=== PATIENT | female | born 1980 | race Caucasian/White ===

== ENCOUNTER 2017-03-27 05:33 | Day surgery (SDC) | payer OTHER ==
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
[2017-03-27] MEDS ORDERED: cefOXitin SODIUM 2 GM in D5W 100 ML IV ONE (06:23)
[2017-03-27] MEDS ORDERED: LR 1,000 ML IV ONE (06:30)
[2017-03-27 07:01] LABS: % IMMATURE GRANULYOCYTES 0.3 % (0.0-1.1); ABSOLUTE IMMATURE GRANULOCYTES 0.01 10^3/uL (0.00-0.10); ADD DIFF? NO; ADD MORPH? NO; ADD SCAN? NO; ATYPICAL LYMPHOCYTE FLAG 20 (0-99); FRAGMENT RBC FLAG 0 (0-99); HEMATOCRIT 31.5 % (38.0-47.0); HEMOGLOBIN 9.9 g/dL (12.6-16.3); LEFT SHIFT FLG 0 (0-99); LIPEMIA HEMOLYSIS FLAG 80 (0-99); MEAN CELL HEMOGLOBIN 25.1 pg (27.9-34.1); MEAN CELL HEMOGLOBIN CONCENTR. 31.4 g/dL (32.4-36.7); MEAN CELL VOLUME 79.7 fL (81.5-99.8); PLATELET CLUMPS FLAG 10 (0-99); PLATELET COUNT 234 10^3/uL (150-400); RED BLOOD CELL COUNT 3.95 10^6/uL (4.18-5.33); RED CELL DISTRIBUTION WIDTH 16.6 % (11.5-15.2)
[2017-03-27] MEDS ORDERED: BUPIVACAINE/EPI 0.5% 30 ML SDV ONE (07:42)
--- NOTE | 2017-03-27 07:48 | PDHPUP ---
History & Physical Update H&P update statement: This history and physical update is based on an assessment of the patient which was completed after admission or registration (within 24 hours), but prior to the surgery/procedure. H&P update: H&P reviewed & patient examined, no change in patient's condition since H&P completed
[2017-03-27] MEDS ORDERED: MIDAZOLAM 2 MG/2 ML VIAL IVP ONE (08:07)
--- NOTE | 2017-03-27 08:07 | PDANEPAE ---
ANE History of Present Illness Hemorrhoidectomy ANE Past Medical History - Cardiovascular History Hx Hypertension: No Hx Arrhythmias: No Hx Chest Pain: No Hx Coronary Artery / Peripheral Vascular Disease: No Hx CHF / Valvular Disease: No Hx Palpitations: No Cardiovascular History Comment: IRREG HB W/EXERCISE - Pulmonary History Hx COPD: No Hx Asthma/Reactive Airway Disease: Yes Hx Recent Upper Respiratory Infection: No Hx Oxygen in Use at Home: No Hx Sleep Apnea: No Sleep Apnea Screening Result - Last Documented: Positive Pulmonary History Comment: ENVIRONMENTAL & EXERCISE INDUCE ASTHMA - Neurologic History Hx Cerebrovascular Accident: No Hx Seizures: No Hx Dementia: No Neurologic History Comment: MIGRAINES ALMOST DAILY - Endocrine History Hx Diabetes: No Hypothyroid: No Obesity: no - Renal History Hx Renal Disorders: No - Liver History Hx Hepatic Disorders: No - Neurological & Psychiatric Hx Hx Neurological and Psychiatric Disorders: No - Cancer History Hx Cancer: No - Congenital Disorder History Hx Congenital Disorders: No - GI History Hx Gastrointestinal Disorders: No - Other Health History Other Health History: ECZEMA - HANDS. ANEMIA - TAKES IRON SUPPLEMENT - Chronic Pain History Chronic Pain: Yes (LUMBAR SPINE TO L LEG) - Surgical History Prior Surgeries: FOOT SURGERY - FB REM. D&C. EPIDURAL INJS/ABLATIONS LUMBAR. SKIN GRAFT ANE Review of Systems Review of Systems: - Exercise capacity METS (RN): 4 METS ANE Patient History - Allergies Allergies/Adverse Reactions: iodine Allergy (Verified 03/27/17 06:27) shellfish derived Allergy (Verified 03/27/17 06:24) - Home Medications Home Medications: LYRICA 02/22/10 [Last Taken 03/20/17] Albuterol 03/26/17 [Last Taken 03/20/17] Herbals/Supplements -Info Only 03/26/17 [Last Taken 03/24/17 s] Lidocaine 03/26/17 [Last Taken 03/20/17] Tizanidine HCl 03/26/17 [Last Taken 03/26/17] Tramadol HCl 03/26/17 [Last Taken 03/26/17] - NPO status NPO Since - Liquids (Date): 03/26/17 NPO Since - Liquids (Time): 23:50 NPO Since - Solids (Date): 03/26/17 NPO Since - Solids (Time): 20:00 - Anes Hx Anes Hx: no prior problems - Smoking Hx Smoking Status: Never smoked - Family Anes Hx Family Anes Hx: neg - N/A Family Hx Anesthesia Complications: NEG ANE Labs/Vital Signs - Labs Result Diagrams: 03/27/17 06:50 - Vital Signs Blood Pressure: 117/86 Heart Rate: 91 Respiratory Rate: 16 O2 Sat (%): 95 Height: 165.1 cm Weight: 53.524 kg ANE Physical Exam - Airway Neck exam: FROM Mallampati Score: Class 1 - Pulmonary Pulmonary: clear to auscultation - Cardiovascular Cardiovascular: regular rate and rhythym ANE Anesthesia Plan Anesthesia Plan: GA w LMA
[2017-03-27] MEDS ORDERED: fentaNYL 100 MCG/2 ML INJ ONE ×3 (08:10→09:31)
[2017-03-27] MEDS ORDERED: DEXAMETHASONE 4 MG/ML VIAL ONE (08:10)
[2017-03-27] MEDS ORDERED: PROPOFOL 200 MG/20 ML VIAL ONE (08:10)
[2017-03-27] MEDS ORDERED: RANITIDINE 50 MG/2 ML VIAL ONE (08:15)
[2017-03-27] MEDS ORDERED: ONDANSETRON 4 MG/2 ML VIAL ONE ×2 (08:40)
[2017-03-27] MEDS ORDERED: KETOROLAC 30 MG/1 ML SDV ONE (08:51)
[2017-03-27] MEDS ORDERED: NALOXONE HCL 0.4 MG/ML INJ IVP PRN (08:55)
[2017-03-27] MEDS ORDERED: ALBUTEROL 3 ML DEYVIAL IH PRN (08:55)
--- NOTE | 2017-03-27 08:55 | POSTOPPROG ---
Post Op Note Date of Operation: 03/27/17 Surgeon: Andra Constantino Helicopter Officer: gregorio Anesthesiologist: lynnette Anesthesia: GET(General Endotracheal) Pre-op Diagnosis: external hemorrhoids Post-op Diagnosis: same Indication: 36 yo with circumferential hemorrhoids Procedure: hemorrhoidectomy x 1 pile r posterior lateral Findings: circumferential Inf/Abcess present in the surg proc area at time of surgery?: No Depth: Superfical (Skin SQ) EBL: Minimal
[2017-03-27] MEDS: fentaNYL 100 MCG/2 ML INJ IVP PRN ×2 (09:35→09:45)
[2017-03-27 10:08] VITALS: PULSE 69; RESP 16; TEMP 97.7
[2017-03-27] MEDS ORDERED: OXYCODONE/APAP 5/325 TAB ONE (10:33)
[2017-03-27 10:36] VITALS: O2SAT 99
[2017-03-27] MEDS ORDERED: OXYCODONE/APAP 5/325 TAB PO ONE (10:45)
[2017-03-27 11:18] VITALS: BP 116/89
--- NOTE | 2017-03-27 15:55 | POSTANESTH ---
Post Anesthetic Evaluation Cardiovascular Status: Normal, Stable Respiratory Status: Similar to Pre-op Cond. Level of Consciousness/Mental Status: Can Participate in Eval Pain Control: Adequate, Prn Tx Ordered Nausea/Vomiting Control: Adequate, Prn Tx Ordered Complications Possibly Related to Anesthesia: None Noted
--- NOTE | 2017-03-28 07:59 | GOP ---
[f rep st] OPERATIVE REPORT DATE OF OPERATION: 03/27/2017 SURGEON: Andra Constantino MD ANESTHESIA: General. ANESTHESIOLOGIST: Chema Ward MD. PREOPERATIVE DIAGNOSIS: External hemorrhoids. POSTOPERATIVE DIAGNOSIS: External hemorrhoids. PROCEDURE PERFORMED: Exam under anesthesia with hemorrhoidectomy x1 pile. FINDINGS: Circumferential hemorrhoids. SPECIMENS: None. ESTIMATED BLOOD LOSS: 10 cc. INDICATIONS: The patient is a 36-year-old woman who has developed external hemorrhoids following pre gnancy. She desires removal. DESCRIPTION OF PROCEDURE: The patient was brought into the operating room, placed supine on the tabl e, and general anesthesia was administered. She was then placed in a lithotomy position. Her bottom was prepped and draped in the usual sterile fashion. I performed an exam under anesthesia. The mos t prominent hemorrhoids were on the right posterior lateral pile. I placed 0.5% Marcaine in this are a. I placed the anoscope. I placed a 3-0 Vicryl suture at the base of the hemorrhoid. I then excis ed the hemorrhoid, careful to preserve the sphincters. Hemostasis was achieved. I sutured the defec t closed with 3-0 Vicryl. There was no stenosis. ABD mesh pants were applied. She was taken out of the lithotomy position, awakened in the operating room, extubated, transferred to PACU in stable con dition. /[id number]/MODL
== END 2017-03-27 11:15 | disposition home or self-care (01) ==
LOC: FSGY 05:33
PROVIDERS: ATTEND Surgery
DX: K64.4 Residual hemorrhoidal skin tags (principal); K21.9 Gastro-esophageal reflux disease without esophagitis; J45.909 Unspecified asthma, uncomplicated
CPT/HCPCS: J0694; J1100; J1885; J2250; J2405; J2704; J2780; J3010

== ENCOUNTER 2017-04-17 17:16 | Emergency (ER) | payer OTHER ==
--- NOTE | 2017-04-17 17:37 | EDPHY ---
H & P Time Seen by Provider: 04/17/17 17:26 HPI/ROS: CHIEF COMPLAINT: Epigastric pain, diarrhea HISTORY OF PRESENT ILLNESS: The patient presents to the ED with complaints of epigastric and left upper quadrant pain. The patient has had the symptoms for the past 2 days. She has had some diarrhea which she characterizes as black in color. The patient is status post hemorrhoid surgery. She has been recovering uneventfully. The patient denies any dysuria. She denies any prior history of abdominal surgery. The patient has not had recent antibiotics. The patient complains of moderate epigastric and left upper quadrant pain. REVIEW OF SYSTEMS: A comprehensive 10 point review of systems is otherwise negative aside from elements mentioned in the history of present illness. Source: Patient Exam Limitations: No limitations - Medical/Surgical History Other PMH: Degenerative disc disease L1 to S3 - Social History Smoking Status: Never smoked - Physical Exam Exam: General Appearance: Alert, no distress Eyes: Pupils equal and round no pallor or injection ENT, Mouth: Mucous membranes moist Respiratory: There are no retractions, lungs are clear to auscultation Cardiovascular: Regular rate and rhythm Gastrointestinal: Epigastric tenderness to palpation, mild left upper quadrant tenderness to palpation, no peritoneal signs Rectal: Brown stool noted Neurological: A&O, normal motor function, normal sensory exam, normal cranial nerves Skin: Warm and dry, no rashes Musculoskeletal: Neck is supple nontender Extremities: symmetrical, full range of motion Constitutional: Initial Vital Signs Temperature (C) 36.9 C 04/17/17 17:41 Heart Rate 100 04/17/17 17:41 Respiratory Rate 18 04/17/17 17:41 Blood Pressure 108/78 04/17/17 17:41 O2 Sat (%) 100 04/17/17 17:41 O2 Delivery Mode Nasal Cannula O2 (L/minute) 2 Allergies/Adverse Reactions: shellfish Allergy (Severe, Uncoded 03/27/14 09:04) Home Medications: Medication Instructions Recorded Hydrocodone/APAP 5/325 [Aiken 1 tab PO Q4 #10 tab 03/27/14 5/325 (RX)] Pregabalin [Lyrica 50mg (RX)] 50 mg PO BID 03/27/14 traMADol [Ultram] 50 mg PO Q4 03/27/14 Ondansetron Odt [Zofran Odt] 4 mg PO Q4PRN PRN #20 tab 04/17/17 Medical Decision Making ED Course/Re-evaluation: The patient presents to the emergency department with complaints of epigastric and left upper quadrant pain with associated diarrhea. The patient has no significant history of abdominal pathology. She was noted to have mild epigastric tenderness on exam. The patient's rectal examination demonstrated brown stool. She is status post hemorrhoid surgery several weeks ago. The patient had an IV established. She received a L of normal saline. She received IV Zofran. She received a small amount of IV narcotic medication. Given the patient's tenderness she was taken for a noncontrast CT scan which demonstrates no evidence of an obvious perforation, obstruction or left upper quadrant inflammatory process. I re-evaluated the patient at 8:20 p.m.. Her tenderness has markedly improved. She does complain of some mild ongoing nausea. The patient was given a GI cocktail at 8:30 p.m.. At this point time I believe the patient's symptoms of abdominal pain and diarrhea are most consistent with a gastritis/gastroenteritis. She has no evidence of a GI bleed. She has no evidence of a surgical abdomen. I re-evaluated the patient at 9:00 p.m.. She is feeling better would like to be discharged home. She will be given a prescription for Zofran. She does understand return to the ED immediately for any worsening symptoms or other concerns. Differential Diagnosis: Differential diagnosis considered includes gastritis, gastroenteritis, pancreatitis, perforation, obstruction, peptic ulcer disease - Data Points Laboratory Results: Laboratory Results 04/17/17 17:40 04/17/17 17:40 04/17/17 04/17/17 04/17/17 18:03 17:40 17:40 WBC RBC Hgb Hct MCV MCH MCHC RDW Plt Count MPV Neut % (Auto) Lymph % (Auto) Hernando % (Auto) Eos % (Auto) Baso % (Auto) Nucleat RBC Rel Count Absolute Neuts (auto) Absolute Lymphs (auto) Absolute Monos (auto) Absolute Eos (auto) Absolute Basos (auto) Absolute Nucleated RBC Immature Gran % Immature Gran # Sodium 145 mEq/L H mEq/L (134-144) Potassium 4.1 mEq/L mEq/L (3.5-5.2) Chloride 112 mEq/L H mEq/L (97-110) Carbon Dioxide 18 mEq/l L mEq/l (22-31) Anion Gap 15 mEq/L mEq/L (8-16) BUN 8 mg/dL mg/dL (7-23) Creatinine 0.7 mg/dL mg/dL (0.6-1.0) Estimated GFR > 60 Glucose 112 mg/dL H mg/dL (70-100) Calcium 9.8 mg/dL mg/dL (8.5-10.4) Total Bilirubin 0.1 mg/dL mg/dL (0.1-1.4) Conjugated Bilirubin 0.1 mg/dL mg/dL (0.0-0.5) Unconjugated Bilirubin 0.0 mg/dL mg/dL (0.0-1.1) AST 20 IU/L IU/L (14-46) ALT 24 IU/L IU/L (9-52) Alkaline Phosphatase 41 IU/L IU/L (38-126) Total Protein 7.0 g/dL g/dL (6.3-8.2) Albumin 4.2 g/dL g/dL (3.5-5.0) Lipase 86 IU/L IU/L (23-300) Beta HCG, Qual NEGATIVE Stool Occult Bld Scrn NEGATIVE (NEGATIVE) 04/17/17 17:40 WBC 5.43 10^3/uL 10^3/uL (3.80-9.50) RBC 4.18 10^6/uL 10^6/uL (4.18-5.33) Hgb 10.6 g/dL L g/dL (12.6-16.3) Hct 33.2 % L % (38.0-47.0) MCV 79.4 fL L fL (81.5-99.8) MCH 25.4 pg L pg (27.9-34.1) MCHC 31.9 g/dL L g/dL (32.4-36.7) RDW 16.2 % H % (11.5-15.2) Plt Count 263 10^3/uL 10^3/uL (150-400) MPV 11.3 fL fL (8.7-11.7) Neut % (Auto) 92.7 % H % (39.3-74.2) Lymph % (Auto) 4.8 % L % (15.0-45.0) Hernando % (Auto) 1.7 % L % (4.5-13.0) Eos % (Auto) 0.0 % L % (0.6-7.6) Baso % (Auto) 0.6 % % (0.3-1.7) Nucleat RBC Rel Count 0.0 % % (0.0-0.2) Absolute Neuts (auto) 5.04 10^3/uL 10^3/uL (1.70-6.50) Absolute Lymphs (auto) 0.26 10^3/uL L 10^3/uL (1.00-3.00) Absolute Monos (auto) 0.09 10^3/uL L 10^3/uL (0.30-0.80) Absolute Eos (auto) 0.00 10^3/uL L 10^3/uL (0.03-0.40) Absolute Basos (auto) 0.03 10^3/uL 10^3/uL (0.02-0.10) Absolute Nucleated RBC 0.00 10^3/uL 10^3/uL (0-0.01) Immature Gran % 0.2 % % (0.0-1.1) Immature Gran # 0.01 10^3/uL 10^3/uL (0.00-0.10) Sodium Potassium Chloride Carbon Dioxide Anion Gap BUN Creatinine Estimated GFR Glucose Calcium Total Bilirubin Conjugated Bilirubin Unconjugated Bilirubin AST ALT Alkaline Phosphatase Total Protein Albumin Lipase Beta HCG, Qual Stool Occult Bld Scrn Medications Given: Discontinued Medications Al Hydroxide/Mg Hydroxide (Maalox Susp) 30 ml PO ONCE ONE Stop: 04/17/17 20:16 Last Admin: 04/17/17 20:39 Dose: 30 ml Hydromorphone HCl (Dilaudid) 0.5 mg IVP EDNOW ONE Stop: 04/17/17 19:19 Last Admin: 04/17/17 19:28 Dose: 0.5 mg Hyoscyamine Sulfate (Levsin, Hyomax-Sl) 0.25 mg PO ONCE ONE Stop: 04/17/17 20:16 Last Admin: 04/17/17 20:39 Dose: 0.25 mg Lidocaine (Lidocaine 2% Viscous) 15 ml PO ONCE ONE Stop: 04/17/17 20:16 Last Admin: 04/17/17 20:39 Dose: 15 ml Departure - Departure Disposition: Home, Routine, Self-Care Clinical Impression: Gastritis Condition: Good Instructions: Gastritis (ED) Additional Instructions: Sometimes we are unable to diagnose an obvious cause of abdominal pain in the Emergency Department. Based upon our evaluation today, I believe you may be having a mild inflammatory condition caused by a virus. Because more serious conditions can be difficult to diagnose early in the course of their presentation, we ask that you return to the Emergency Department in 8-12 hours for a recheck if you are still having pain. This is necessary to exclude the development of a more serious condition such as appendicitis or other intra- abdominal emergency. In the event your pain markedly increases before that time or you develop intractable vomiting or fever return to the Emergency Department immediately. Zofran as needed for nausea. Please take Zantac 150 mg twice daily.
[2017-04-17 17:43] VITALS: RESP 18; TEMP 98.4
[2017-04-17 17:47] LABS: PLATELET COUNT 263 10^3/uL (150-400)
[2017-04-17 18:49] VITALS: BP 111/70; PULSE 78; O2SAT 99
[2017-04-17] MEDS ORDERED: HYDROmorphONE/DILAUDID 1 MG/ML INJ IVP ONE (19:18)
[2017-04-17] MEDS ORDERED: IOPAMIDOL (ISOVUE-300) 100 ML BTL ONE (19:23)
[2017-04-17] MEDS ORDERED: MAG HYDROX/AL HYDROX/SIMETH 30 ML UDCUP PO ONE (20:15)
[2017-04-17] MEDS ORDERED: LIDOCAINE 2% VISCOUS 15 ML UDCUP PO ONE (20:15)
[2017-04-17] MEDS ORDERED: HYOSCYAMINE SULFATE 0.125 MG TAB PO ONE (20:15)
[2017-04-17] MEDS ORDERED: ONDANSETRON 4MG PREPACK#2 BTL TAKEHOME ONE (20:52)
== END 2017-04-17 21:09 | disposition home or self-care (01) ==
LOC: EDUNIT# → MERGE 17:16
DX: K29.70 Gastritis, unspecified, without bleeding (principal)
CPT/HCPCS: 74176; 96374; 99285; J1170; Q9967

== ENCOUNTER → 2017-05-22 | Outpatient (CLI) | payer OTHER | LOC: FIMAGING 09:22 → MERGE 09:22 | PROVIDERS: ATTEND Family Medicine | DX: D25.9 Leiomyoma of uterus, unspecified (principal); E04.1 Nontoxic single thyroid nodule ==

== ENCOUNTER → 2017-06-26 | Outpatient (CLI) | payer OTHER | LOC: MERGE 13:00 → FIMAGING 13:21 | PROVIDERS: ATTEND Family Medicine | DX: Z71.9 Counseling, unspecified (principal) ==

== ENCOUNTER 2017-06-29 09:15 | Observation (INO) | payer OTHER ==
[2017-06-29] MEDS ORDERED: ceFAZolin 2 GM/SWFI 2 GM/20 ML SYR IVP ONE (09:34)
[2017-06-29] MEDS ORDERED: LIDO/EPI 2%** Not for Epidural 20 ML MDV ONE (09:37)
[2017-06-29] MEDS ORDERED: LIDO/EPI 1% **for epidural** 10 ML SDV ONE (09:38)
[2017-06-29] MEDS ORDERED: LR 1,000 ML IV ONE (09:46)
[2017-06-29] MEDS ORDERED: fentaNYL 250 MCG/5 ML INJ ONE (10:25)
[2017-06-29] MEDS ORDERED: PROPOFOL/EMULSION 500 MG/50 ML BOTTLE IV ONE ×2 (10:26→11:28)
[2017-06-29] MEDS ORDERED: MIDAZOLAM 2 MG/2 ML VIAL IVP ONE (10:28)
[2017-06-29] MEDS ORDERED: MIDAZOLAM 2 MG/2 ML VIAL ONE (10:28)
[2017-06-29] MEDS ORDERED: NALOXONE HCL 0.4 MG/ML INJ IVP PRN (10:57)
[2017-06-29] MEDS ORDERED: ALBUTEROL 3 ML DEYVIAL IH PRN (10:57)
[2017-06-29] MEDS ORDERED: LR 500 ML IV PRN (10:57)
[2017-06-29] MEDS ORDERED: HYDROCODONE/APAP 5/325 TAB PO PRN (10:57)
[2017-06-29] MEDS ORDERED: METOCLOPRAMIDE 10 MG/2 ML VIAL IVP PRN (10:57)
[2017-06-29] MEDS ORDERED: ONDANSETRON 4 MG/2 ML VIAL IVP PRN ×2 (10:57→16:41)
[2017-06-29] MEDS ORDERED: LABETALOL HCL 5 MG/ML 20 ML MDV IVP PRN (10:57)
[2017-06-29] MEDS ORDERED: DEXAMETHASONE 4 MG/ML VIAL IVP PRN (10:57)
[2017-06-29] MEDS ORDERED: PROMETHAZINE HCL 25 MG/ML INJ IVP PRN (10:57)
[2017-06-29] MEDS ORDERED: MEPERIDINE 25 MG/ML SYR IVP PRN (10:57)
[2017-06-29] MEDS ORDERED: HYDROmorphONE/DILAUDID 1 MG/ML INJ IVP PRN (10:57)
--- NOTE | 2017-06-29 11:01 | PDANEPAE ---
ANE History of Present Illness 36 year old woman for Left thyroidectomy. ANE Past Medical History - Cardiovascular History Hx Hypertension: No Hx Arrhythmias: No Hx Chest Pain: No Hx Coronary Artery / Peripheral Vascular Disease: No Hx CHF / Valvular Disease: No Hx Palpitations: No Cardiovascular History Comment: IRREG HB W/EXERCISE - Pulmonary History Hx COPD: No Hx Asthma/Reactive Airway Disease: Yes Hx Recent Upper Respiratory Infection: No Hx Oxygen in Use at Home: No Hx Sleep Apnea: No Sleep Apnea Screening Result - Last Documented: Negative Pulmonary History Comment: ENVIRONMENTAL & EXERCISE INDUCE ASTHMA - Neurologic History Hx Cerebrovascular Accident: No Hx Seizures: No Hx Dementia: No Neurologic History Comment: MIGRAINES ALMOST DAILY - Endocrine History Hx Diabetes: No - Renal History Hx Renal Disorders: No - Liver History Hx Hepatic Disorders: No - Neurological & Psychiatric Hx Hx Neurological and Psychiatric Disorders: No - Cancer History Hx Cancer: No - Congenital Disorder History Hx Congenital Disorders: Yes Congenital History Comment: heart transplants - GI History Hx Gastrointestinal Disorders: Yes Gastrointestinal History Comment: diarrhea,brat diet - Other Health History Other Health History: ECZEMA - HANDS. missing teeth lower. low estrogen, elevated prolactin - Chronic Pain History Chronic Pain: Yes (buttocks,lower back) - Surgical History Prior Surgeries: FOOT SURGERY - FB REM. D&C. EPIDURAL INJS/ABLATIONS LUMBAR. SKIN GRAFT ANE Review of Systems Review of systems is: negative Review of Systems: - Exercise capacity METS (RN): 4 METS - Systems Neurological: Reports: paresthesia, tingling ANE Patient History - Allergies Allergies/Adverse Reactions: shellfish derived Allergy (Severe, Verified 06/25/17 10:34) Anaphylaxis iodine Allergy (Intermediate, Verified 06/25/17 10:34) Other-Enter Comments shellfish Allergy (Severe, Uncoded 06/25/17 10:34) Anaphylaxis - Home Medications Home Medications: LYRICA 02/22/10 [Last Taken 03/20/17] traMADol [Ultram 50 mg (*)] 03/27/14 [Last Taken 06/29/17 08:45] Albuterol 03/26/17 [Last Taken 03/20/17] Herbals/Supplements -Info Only 03/26/17 [Last Taken 03/24/17 s] Lidocaine 03/26/17 [Last Taken 03/20/17] Tizanidine HCl 03/26/17 [Last Taken 06/29/17 08:45] Tramadol HCl 03/26/17 [Last Taken 03/26/17] Ascorbic Acid [Vitamin C 500 mg (*)] 04/18/17 [Last Taken Unknown] Herbals/Supplements -Info Only 04/18/17 [Last Taken Unknown] Multivitamins [Multivitamin (*)] 04/18/17 [Last Taken Unknown] Pregabalin [Lyrica] 04/18/17 [Last Taken 06/29/17 08:45] Tizanidine HCl [Zanaflex] 04/18/17 [Last Taken 04/16/17] Ondansetron Odt [Zofran Odt 4 mg (*)] 06/25/17 [Last Taken Unknown] Pantoprazole Sodium [Protonix 40mg (*)] 06/25/17 [Last Taken 06/29/17 08:15] oxyCODONE HCL/ACETAMINOPHEN [Percocet 5-325 mg Tablet] 06/25/17 [Last Taken Unknown] Epipen Kit 06/29/17 [Last Taken Unknown] - NPO status NPO Since - Liquids (Date): 06/29/17 NPO Since - Liquids (Time): 08:45 NPO Since - Solids (Date): 06/28/17 NPO Since - Solids (Time): 20:00 - Smoking Hx Smoking Status: Never smoked - Family Anes Hx Family Hx Anesthesia Complications: none ANE Labs/Vital Signs - Vital Signs Blood Pressure: 123/90 Heart Rate: 89 Respiratory Rate: 16 O2 Sat (%): 97 Height: 165.1 cm Weight: 53.524 kg ANE Physical Exam - Airway Neck exam: FROM Mallampati Score: Class 1 Mouth exam: normal dental/mouth exam - Pulmonary Pulmonary: no respiratory distress - Cardiovascular Cardiovascular: regular rate and rhythym - ASA Status ASA Status: I ANE Anesthesia Plan Anesthesia Plan: general endotracheal anesthesia
[2017-06-29] MEDS ORDERED: LABETALOL HCL 5 MG/ML 20 ML MDV ONE (11:44)
[2017-06-29] MEDS ORDERED: HYDROmorphONE/DILAUDID 2 MG/ML INJ ONE (13:02)
[2017-06-29] MEDS ORDERED: fentaNYL 100 MCG/2 ML INJ ONE (13:03)
[2017-06-29] MEDS: fentaNYL 100 MCG/2 ML INJ IVP PRN ×2 (13:05→13:23)
[2017-06-29] MEDS: HYDROmorphONE/DILAUDID 2 MG/ML INJ IVP PRN ×3 (13:17→14:04)
--- NOTE | 2017-06-29 13:18 | POSTOPPROG ---
Post Op Note Date of Operation: 06/29/17 Surgeon: April Lira Fretted Instrument Repairer: Keith Warren MD Anesthesiologist: Danitza Crowley MD Anesthesia: GET(General Endotracheal) Pre-op Diagnosis: L thyroid cyst Post-op Diagnosis: same Procedure: L hemithyroidectomy, NIMS Findings: Large L cyst inferiorly Inf/Abcess present in the surg proc area at time of surgery?: No Depth: Superfical (Skin SQ) EBL: Minimal Complications: none apparent Drains: Darion Lugo
[2017-06-29] MEDS ORDERED: ONDANSETRON 4 MG/2 ML VIAL ONE (13:35)
--- NOTE | 2017-06-29 13:58 | POSTANESTH ---
Post Anesthetic Evaluation Cardiovascular Status: Normal, Stable Respiratory Status: Normal, Stable Level of Consciousness/Mental Status: Can Participate in Eval Pain Control: Adequate, Prn Tx Ordered Nausea/Vomiting Control: Adequate, Prn Tx Ordered Complications Possibly Related to Anesthesia: None Noted
[2017-06-29] MEDS ORDERED: PROMETHAZINE HCL 25 MG/ML INJ ONE (14:33)
[2017-06-29] MEDS ORDERED: ACETAMINOPHEN 160 MG/5 ML UDCUP PO PRN (16:41)
[2017-06-29] MEDS ORDERED: OXYCODONE/APAP 5/325 TAB PO PRN (16:41)
[2017-06-29] MEDS ORDERED: HYDROCODONE/APAP 5/325 TAB ONE (16:44)
[2017-06-29] MEDS ORDERED: D5W 1/2 NS W/ 20 KCl/L 1,000 ML IV SCH (16:45)
[2017-06-29] MEDS: OXYCODONE/APAP 5/325 TAB PO PRN (18:26)
--- NOTE | 2017-06-29 20:06 | GOP ---
[f rep st] OPERATIVE REPORT DATE OF OPERATION: 06/29/2017 SURGEON: April Lira MD CO-SURGEON: Keith Warren MD ANESTHESIA: General. PREOPERATIVE DIAGNOSIS: Left thyroid cyst. POSTOPERATIVE DIAGNOSIS: Left thyroid cyst. PROCEDURE PERFORMED: 1. Left hemithyroidectomy with isthmusectomy 2. Recurrent laryngeal nerve monitoring on the left utilizing the [employer] NIMS system. FINDINGS: The patient was found to have a very large, about 4 cm cyst, in the inferior portion of the thyroid gland. The superior and inferior parathyroids were found, as well as the recurrent laryngeal nerve which was kept intact and stimulated postoperatively. ESTIMATED BLOOD LOSS: Minimal. PREOPERATIVE NOTE: The patient is a very pleasant 36-year-old woman who has a history of a left-sided neck mass. Ultrasound was done which showed about a 4 cm left thyroid cyst. This looked to be a fairly simple cyst, although it was causing some slight compressive symptoms, as well as she did not want to have to worry about it If it was just aspirated and then reaccumulated, so she felt that she wanted to undergo surgery. Risks were discussed and she elected to proceed. COMPLICATIONS: None. DESCRIPTION OF PROCEDURE: The patient was first seen in the preoperative area where informed consent was obtained. She was then brought back to the operating room where Anesthesia sedated and intubated her using the NIMS tube. The bed was turned 180 degrees. A shoulder roll was placed. The NIMS tube probes were attached and then confirmed to be registering. We did get registration of the right and left recurrent laryngeal nerve with palpation of this area overlying her neck. A universal time-out protocol was performed. Once we had confirmed the patient and the procedure, a 3-cm incision was marked out in the midline just a little bit more to the left in between the sternal notch and the cricoid cartilage. About 4 cc of 1% lidocaine with 1:200,000 epinephrine was injected into this region. The patient was then prepped and draped in a sterile fashion. At this point, we then made an incision through the skin and subcutaneous tissues using a 15 blade. The platysma was divided as well and then the subplatysmal flap was elevated superiorly and inferiorly. Weitlaner retractors were used to give us better exposure in the incision. Once this was done, the strap musculature was divided in the midline and then left-sided strap musculature was elevated up over the top of the underlying thyroid gland. We noted a very large tense cyst inferiorly and then fairly normal thyroid tissue more superiorly. At this point, blunt dissection was used to completely elevate the muscle off the entirety of the thyroid gland, and we started at the superior pole. The superior pole was grasped using a [place] and then dissection using the Burlisher to dissect out the superior pole vessels. These were clipped using a medium-sized clip and then a Harmonic focus was used to ligate and divide this. Once this was released, we then began extending our dissection inferiorly around the area of the large thyroid cyst. We divided the middle thyroid vein using the Harmonic Focus, as well as inferiorly and released the tissues attached to the cyst. At this point, we needed a little bit better access so the cyst area was grasped with a [place] as well, and with a slight amount of tugging, the cyst developed a small tear and quite a bit of cystic fluid was suctioned from the cyst. This was somewhat brown, serous, and thin. The wound was irrigated out copiously with normal saline and suctioned clear. At this point, we continued our dissection with a little bit better visualization. We went back superiorly and she still had a small area of the superior pole of the thyroid that was not released, so this was released using the Burlisher, as well as the Harmonic Focus. The superior parathyroid was found and this was kept in situ. At this point, we then were able to visualize the recurrent laryngeal nerve. This was stimulated to confirm that this was the nerve, and then we dissected this up from inferior to superior, thereby releasing all the tissues above the nerve. A very small amount of thyroid tissue was left at Young's ligament, as this was significantly close to the nerve and somewhat hard to visualize, as well as this likely being a benign process. So, at this point, the thyroid gland was lifted out and divided from the underlying trachea. The Harmonic focus was then used to divide the isthmus from the right hemithyroid. The left thyroid and isthmus were sent off the field for permanent pathology. We found the superior and inferior parathyroids and they were kept in situ. The recurrent laryngeal nerve was visualized and stimulated postoperatively. The wound was irrigated out copiously with normal saline and suctioned clear. Bipolar cautery was used to cauterize any small bleeding vessels. A small amount of Surgicel was placed over the nerve, and then a 10-S[place]i round MARISELA was placed exiting the right side of the skin incision and then sutured to the skin using a 2-0 silk. All instruments were removed, and then the strap musculature was closed using a 3-0 Vicryl in interrupted fashion. The platysma and subcutaneous tissues were closed in the same fashion, and then a 5-0 Monocryl was used to close the skin in a running subcuticular fashion. Once this was done, the wound was cleaned. The skin was dried and then Mastisol was placed over the skin edges, followed by Steri-Strips. At this point, the MARISELA bulb was holding suction. The patient was turned back over to Anesthesia where she was awakened, extubated, and taken to PACU in stable condition. There were no complications, and she tolerated the procedure well. /[id number]/MODL MTDD
[2017-06-29] MEDS: CEPHALEXIN 500 MG CAP PO SCH (21:55)
[2017-06-30] MEDS: OXYCODONE/APAP 5/325 TAB PO PRN ×2 (01:31→08:42)
[2017-06-30] MEDS: CEPHALEXIN 500 MG CAP PO SCH (08:03)
--- NOTE | 2017-06-30 08:28 | SOAPPROG ---
SOAP Progress Note Assessment/Plan: Assessment: POD1 L hemithyroidectomy. No issues, drain put out 50 cc overnight. Will keep in overnight. RTC when < 30 cc/24 hrs. Keep HOB elevated. D/c home with keflex and percocet Plan: 06/30/17 08:26 Subjective: Doing well, no issues. Pain better. Voice strong. Objective: AFVSS RA sats high 90s neck flat, steristrips in place Drain stripped, in place, serosanginous d/c Vital Signs Temp Pulse Resp BP Pulse Ox 36.8 C 66 16 123/82 H 99 06/30/17 02:28 06/30/17 02:28 06/30/17 02:28 06/30/17 02:28 06/30/17 02:28 06/29/17 06/30/17 07/01/17 05:59 05:59 05:59 Intake Total 2800 Output Total 1310 Balance 1490 ICD10 Worksheet Patient Problems: Problems Problem Status Onset Abdominal pain Acute Vomiting Acute
[2017-06-30 08:48] VITALS: BP 114/81; PULSE 75; RESP 14; TEMP 99.7; O2SAT 100
== END 2017-06-30 11:54 | disposition home or self-care (01) ==
LOC: FSGY 09:15 → MERGE 10:00 → F3E 15:48
PROVIDERS: ADMIT Otolaryngology; ATTEND Otolaryngology
PROC: 0GBG0ZZ Excision of Left Thyroid Gland Lobe, Open Approach (ICD-10-PCS; principal; 2017-06-29 10:00)
DX: E04.2 Nontoxic multinodular goiter (principal); R13.10 Dysphagia, unspecified; F45.8 Other somatoform disorders; K21.9 Gastro-esophageal reflux disease without esophagitis
CPT/HCPCS: 60210; 88307; G0378; J0690; J1170; J2250; J2270; J2405; J2550; J2704; J3010

== ENCOUNTER → 2017-08-14 | Outpatient (CLI) | payer OTHER | LOC: FIMAGING 15:27 | PROVIDERS: ATTEND Radiology Diagnostic Radiology | DX: N80.0 Endometriosis of uterus (principal); N83.202 Unspecified ovarian cyst, left side ==

== ENCOUNTER → 2017-09-08 | Outpatient (CLI) | payer OTHER | LOC: FLAB 16:18 | PROVIDERS: ATTEND Family Medicine | DX: Z71.89 Other specified counseling (principal); N80.0 Endometriosis of uterus; N93.8 Other specified abnormal uterine and vaginal bleeding ==

== ENCOUNTER 2017-09-12 19:27 | Observation (INO) | payer OTHER ==
[2017-09-12] MEDS ORDERED: LIDOCAINE 2% VISCOUS 15 ML UDCUP PO ONE (19:41)
[2017-09-12] MEDS ORDERED: ONDANSETRON 4 MG/2 ML VIAL IVP ONE ×2 (19:41→20:42)
[2017-09-12] MEDS ORDERED: HYDROmorphONE/DILAUDID 2 MG/ML INJ IVP ONE (19:41)
[2017-09-12] MEDS ORDERED: NS 1,000 ML IV ONE (19:41)
[2017-09-12] MEDS ORDERED: MAG HYDROX/AL HYDROX/SIMETH 30 ML UDCUP PO ONE (19:41)
[2017-09-12] MEDS ORDERED: HYOSCYAMINE SULFATE 0.125 MG TAB PO ONE (19:41)
--- NOTE | 2017-09-12 19:41 | EDPHY ---
H & P Stated Complaint: NAUSEA AND VOMITING WITH HX OF THE SAME IN PAST, DX H-PYLOR Time Seen by Provider: 09/12/17 19:35 - Personal History LMP (Females 10-55): 22-28 Days Ago Current Tetanus/Diphtheria Vaccine: Yes Current Tetanus Diphtheria and Acellular Pertussis (TDAP): Yes - Medical/Surgical History Hx Asthma: No Hx Chronic Respiratory Disease: No Hx Diabetes: No Hx Cardiac Disease: No Hx Renal Disease: No Hx Cirrhosis: No Hx Alcoholism: No Hx HIV/AIDS: No Hx Splenectomy or Spleen Trauma: No Other PMH: Degenerative disc disease L1 to S3, H. Pylori, skin grafts, foot surgery (1992), left thyroidectomy, globus pharyngeus, GERD, dysphagia, gastritis - Social History Smoking Status: Never smoked Constitutional: Initial Vital Signs Temperature (C) 37.3 C 09/12/17 19:27 Heart Rate 92 09/12/17 19:27 Respiratory Rate 18 09/12/17 19:27 Blood Pressure 148/114 H 09/12/17 19:27 O2 Sat (%) 100 09/12/17 19:27 O2 Delivery Mode Room Air Allergies/Adverse Reactions: shellfish derived Allergy (Severe, Verified 09/12/17 19:31) Anaphylaxis iodine Allergy (Intermediate, Verified 09/12/17 19:31) Other-Enter Comments shellfish Allergy (Severe, Uncoded 09/12/17 19:31) Anaphylaxis Home Medications: Medication Instructions Recorded Albuterol [Proventil Inhaler HFA 1 - 2 puffs IH Q4H PRN 06/29/17 (*)] EPINEPHrine [Epipen 0.3 MG] 0.3 mg IM PRN PRN 06/29/17 Herbals/Supplements -Info Only 1 ea PO DAILY 06/29/17 Omeprazole 20 mg PO BID 06/29/17 Pregabalin [Lyrica 150mg (*)] 150 mg PO BID 06/29/17 traMADol [Ultram 50 mg (*)] 50 mg PO QID PRN 06/29/17 Medical Decision Making ED Course/Re-evaluation: CHIEF COMPLAINT: Nausea and vomiting HISTORY OF PRESENT ILLNESS: The patient is a 36 y/o female with a history of H. pylori, gastritis, and GERD complaining of worsening nausea, vomiting, and abdominal pain onset 2 days ago. She had similar symptoms in March 2017 and was diagnosed with gastritis and H. pylori via an endoscopy. Denies headache, chest pain, shortness of breath, urinary or bowel complaints, numbness, paresthesias or fever. Followed by Dr. Aldrich, snorkelling instructor. REVIEW OF SYSTEMS: A 10 point review of systems was performed and is negative with the exception of the elements mentioned in the history of present illness. PHYSICAL EXAM: HR, BP, O2 Sat, RR. Temp noted General Appearance: Alert, well hydrated, appropriate, and non-toxic appearing. Head: Atraumatic without scalp tenderness or obvious injury Eyes: Pupils equal, round, reactive to light and accommodation, EOMI, no trauma , no injection. Ears: Clear bilaterally, no perforation, normal landmarks Nose: Atraumatic, no rhinorrhea, clear. Throat: There is no erythema or exudates, no lesions, normal tonsils, mucus membranes dry. Neck: Supple, nontender, no lymphadenopathy. Respiratory: No retractions, no distress, no wheezes, and no accessory muscle use. Lungs are clear to auscultation bilaterally. Cardiovascular: Regular rate and rhythm, no murmurs, rubs, or gallops. Good capillary refill all extremities. Gastrointestinal: Abdomen is soft, diffuse abdominal tenderness, non-distended , no masses, no rebound, no guarding, no peritoneal signs. Musculoskeletal: Normal active ROM of all extremities, atraumatic. Neurological: Alert, appropriate, and interactive. Nonfocal neuro Skin: No rashes, good turgor, no nodules on palpation. Past medical history: H. pylori, degenerative disc disease L1 to S3, globus pharyngeus, GERD, dysphagia, gastritis Past surgical history: Skin grafts, foot surgery (1992), left thyroidectomy Family history: Denies Social history: Family at bedside, lives in [facility] DIFFERENTIAL DIAGNOSIS: The differential diagnosis for the patient's nausea and vomiting included but was not limited to gastroenteritis, gastritis, appendicitis, and medication side effect. MEDICAL DECISION MAKING: The patient is a 36 y/o female with a history of H. pylori, gastritis, and GERD presenting with nausea, vomiting, and abdominal pain onset 2 days ago. Patient' s exam is normal and she has a soft, nontender abdomen. Labs ordered. 1L IV NS, 4mg IV Zofran, 0.5mg IV Dilaudid, GI Cocktail, and 20mg PO Pepcid administered. 2038: 30mg IV Toradol and additional 4mg IV Zofran administered as patient's symptoms have not improved. 2116: Reassessed patient, her pain and symptoms have not improved. She was unable to complete the GI cocktail as she did not like the taste and thought it made her feel worse. Her labs are normal. Massaging the tender abdomen worsened her symptoms. She remains to have a non-surgical, soft, and benign abdomen. She is complaining of right upper quadrant pain. I have discussed plan for admission ; which the patient and her are comfortable with. 2130: Consulted with hospitalist service, Dr. Escamilla accepts admission of this patient. 2137: 25mg IV Phenergan administered. 2141: Consulted with Dr. Stewart, snorkelling instructor, who agrees to follow this patient during her admission. - Data Points Laboratory Results: Laboratory Results 09/12/17 19:50 09/12/17 19:50 09/12/17 09/12/17 09/12/17 19:50 19:50 19:50 WBC 4.05 10^3/uL 10^3/uL (3.80-9.50) RBC 4.08 10^6/uL L 10^6/uL (4.18-5.33) Hgb 9.7 g/dL L g/dL (12.6-16.3) Hct 32.1 % L % (38.0-47.0) MCV 78.7 fL L fL (81.5-99.8) MCH 23.8 pg L pg (27.9-34.1) MCHC 30.2 g/dL L g/dL (32.4-36.7) RDW 15.7 % H % (11.5-15.2) Plt Count 308 10^3/uL 10^3/uL (150-400) MPV 10.4 fL fL (8.7-11.7) Neut % (Auto) 89.9 % H % (39.3-74.2) Lymph % (Auto) 7.4 % L % (15.0-45.0) [place] % (Auto) 2.0 % L % (4.5-13.0) Eos % (Auto) 0.0 % L % (0.6-7.6) Baso % (Auto) 0.5 % % (0.3-1.7) Nucleat RBC Rel Count 0.0 % % (0.0-0.2) Absolute Neuts (auto) 3.64 10^3/uL 10^3/uL (1.70-6.50) Absolute Lymphs (auto) 0.30 10^3/uL L 10^3/uL (1.00-3.00) Absolute Monos (auto) 0.08 10^3/uL L 10^3/uL (0.30-0.80) Absolute Eos (auto) 0.00 10^3/uL L 10^3/uL (0.03-0.40) Absolute Basos (auto) 0.02 10^3/uL 10^3/uL (0.02-0.10) Absolute Nucleated RBC 0.00 10^3/uL 10^3/uL (0-0.01) Immature Gran % 0.2 % % (0.0-1.1) Seg Neutrophils % TNP Immature Gran # 0.01 10^3/uL 10^3/uL (0.00-0.10) Platelet Estimate Not Reported Sodium 142 mEq/L mEq/L (135-145) Potassium 3.7 mEq/L mEq/L (3.3-5.0) Chloride 107 mEq/L mEq/L (97-110) Carbon Dioxide 20 mEq/l L mEq/l (22-31) Anion Gap 15 mEq/L mEq/L (8-16) BUN 9 mg/dL mg/dL (7-23) Creatinine 0.7 mg/dL mg/dL (0.6-1.0) Estimated GFR > 60 Glucose 120 mg/dL H mg/dL (70-100) Calcium 9.9 mg/dL mg/dL (8.5-10.4) Total Bilirubin 0.4 mg/dL mg/dL (0.1-1.4) Conjugated Bilirubin 0.3 mg/dL mg/dL (0.0-0.5) Unconjugated Bilirubin 0.1 mg/dL mg/dL (0.0-1.1) AST 25 IU/L IU/L (14-46) ALT 23 IU/L IU/L (9-52) Alkaline Phosphatase 45 IU/L IU/L (38-126) Total Protein 8.0 g/dL g/dL (6.3-8.2) Albumin 4.7 g/dL g/dL (3.5-5.0) Lipase 136 IU/L IU/L (23-300) Beta HCG, Qual NEGATIVE Medications Given: Promethazine HCl (Phenergan) 25 mg IVP ONCE ONE Stop: 09/12/17 21:40 Last Admin: 09/12/17 21:43 Dose: 25 mg Discontinued Medications Al Hydroxide/Mg Hydroxide (Maalox Susp) 30 ml PO ONCE ONE Stop: 09/12/17 19:42 Last Admin: 09/12/17 19:49 Dose: 30 ml Hydromorphone HCl (Dilaudid) 0.5 mg IVP EDNOW ONE Stop: 09/12/17 19:42 Last Admin: 09/12/17 19:49 Dose: 0.5 mg Hyoscyamine Sulfate (Levsin, Hyomax-Sl) 0.25 mg PO ONCE ONE Stop: 09/12/17 19:42 Last Admin: 09/12/17 19:49 Dose: 0.25 mg Sodium Chloride (Ns) 1,000 mls @ 0 mls/hr IV EDNOW ONE; Wide Open PRN Reason: Protocol Stop: 09/12/17 19:42 Last Admin: 09/12/17 19:48 Dose: 1,000 mls Famotidine/Sodium Chloride (Pepcid 20 Mg (Premix)) 50 mls @ 200 mls/hr IV EDNOW ONE Stop: 09/12/17 19:55 Last Admin: 09/12/17 20:15 Dose: 50 mls Ketorolac Tromethamine (Toradol) 30 mg IVP EDNOW ONE Stop: 09/12/17 20:37 Last Admin: 09/12/17 20:39 Dose: 30 mg Lidocaine (Lidocaine 2% Viscous) 15 ml PO ONCE ONE Stop: 09/12/17 19:42 Last Admin: 09/12/17 19:49 Dose: 15 ml Ondansetron HCl (Zofran) 4 mg IVP EDNOW ONE Stop: 09/12/17 19:42 Last Admin: 09/12/17 19:48 Dose: Not Given Ondansetron HCl (Zofran) 4 mg IVP EDNOW ONE Stop: 09/12/17 20:43 Last Admin: 09/12/17 20:43 Dose: 4 mg Departure - Departure Disposition: [facility] Inpatient Acute Clinical Impression: Abdominal pain Qualifiers: Abdominal location: generalized Qualified Code(s): R10.84 - Generalized abdominal pain Vomiting Qualifiers: Vomiting type: unspecified Vomiting Intractability: non-intractable Nausea presence: with nausea Qualified Code(s): R11.2 - Nausea with vomiting, unspecified Gastritis Qualifiers: Gastritis type: unspecified gastritis Chronicity: acute Gastritis bleeding: without bleeding Qualified Code(s): K29.00 - Acute gastritis without bleeding Condition: Fair Referrals: Marcy Moyer MD [Primary Care Provider] - As per Instructions Report Scribed for: Domenic Shaw Report Scribed by: Sofia Gavin Date of Report: 09/12/17 Time of Report: 20:21
[2017-09-12] MEDS: FAMOTIDINE 20 MG/NACL 50 ML IV ONE ×2 (19:48→20:15)
[2017-09-12 20:01] LABS: PLATELET COUNT 308 10^3/uL (150-400)
[2017-09-12] MEDS ORDERED: FAMOTIDINE 20 MG/NACL/50 ML BAG IV ONE (20:12)
[2017-09-12] MEDS ORDERED: KETOROLAC 30 MG/1 ML SDV IVP ONE (20:36)
[2017-09-12] MEDS ORDERED: ONDANSETRON 4 MG/2 ML VIAL ONE (20:42)
[2017-09-12] MEDS ORDERED: PROMETHAZINE HCL 25 MG/ML INJ ONE (21:39)
[2017-09-12] MEDS ORDERED: PROMETHAZINE HCL 25 MG/ML INJ IVP ONE ×2 (21:39→22:00)
[2017-09-12] MEDS ORDERED: PROMETHAZINE HCL 25 MG/ML INJ IVP PRN (21:55)
[2017-09-12] MEDS ORDERED: ACETAMINOPHEN 325 MG TAB PO PRN (21:55)
[2017-09-12] MEDS ORDERED: ONDANSETRON 4 MG/2 ML VIAL IVP PRN (21:55)
[2017-09-12] MEDS ORDERED: ACETAMINOPHEN 650 MG SUPP PR PRN (21:55)
[2017-09-12] MEDS: PANTOPRAZOLE SODIUM 40 MG VIAL IVP SCH (22:09)
[2017-09-12] MEDS: traMADol 50 MG TAB PO PRN (22:30)
[2017-09-12] MEDS: NS 1,000 ML IV SCH (23:57)
[2017-09-13] MEDS: tiZANidine HCL 2 MG TAB PO PRN ×3 (00:02→16:28)
--- NOTE | 2017-09-13 00:24 | GHP ---
[f rep st] HISTORY AND PHYSICAL DATE OF ADMISSION: 09/12/2017 CHIEF COMPLAINT: Abdominal pain. HISTORY: The patient is a 36-year-old female, who presents with epigastric pain, nausea, and vomitin g. She had similar symptoms in March and had an EGD. Was diagnosed with H pylori positive gastri tis. She completed her course of antibiotics for H pylori. She now represents with the exact same s ymptoms as she had last time. She describes severe epigastric pain. It radiates to her back. It ra diates across her abdomen, with severe nausea and vomiting. Unable to keep anything down for the las t 2 days. She had some diarrhea yesterday. PAST MEDICAL HISTORY: 1. Uterine adenomyosis. Consulted with Dr. Rios for uterine artery embolization, to be scheduled [place]. 2. Endometriosis. 3. Status post thyroidectomy. 4. Iron-deficiency anemia. 5. Chronic back pain. 6. H pylori, status post treatment. MEDICATIONS: Please see computer record full detailed list. ALLERGIES: Iodine. SOCIAL HISTORY: No smoking. She is , with children. REVIEW OF SYSTEMS: Complete review of system obtained. Review of systems negative regarding constit utional, HEENT, GI, pulmonary, cardiovascular, , hematologic, skin, muscular, endocrine, psych exce pt for positives as noted in HPI. FAMILY HISTORY: Dad of chronic kidney disease. PHYSICAL EXAMINATION: GENERAL: Well-developed, well-nourished female, in no acute distress. VITAL SIGNS: Temperature 37.3, pulse 58, blood pressure 143/92, satting 100% on room air. EYES: Normal c onjunctivae. Pupils react to light. ENT: Normal ears, nose. Hearing intact. Normal teeth. Oroph arynx moist. NECK: Trachea midline, no thyromegaly. CHEST: Normal respiratory effort. LUNGS: Cl ear to auscultation bilaterally. CARDIOVASCULAR: Regular rate and rhythm. No murmur. No lower ext remity edema. ABDOMEN: Soft. Epigastric tenderness to palpation, without rebound or guarding. No hepatosplenomegaly. SKIN: Warm, dry, intact. No rash. MUSCULOSKELETAL: No cyanosis or clubbing. Strength 5/5, upper and lower extremities. NEUROLOGIC: Cranial nerves intact. Normal sensation to light touch. PSYCH: Alert and oriented x3. Normal mood and affect. Normal judgment and insight. Normal memory. LABORATORY DATA: White count 4.05, hematocrit 32.1, MCV 78, platelets 308. Sodium 142, potassium 3. 7, chloride 107, bicarb 20, BUN 19, creatinine 0.7, glucose 120. LFTs are negative. Beta HCG is neg ative. This case was discussed with Dr. Shaw. He has called and spoken with Dr. Stewart of Gastroenterology to consult. MEDICAL RECORD REVIEW: I do not have records from her GI reports as I think her previous scopes were done as an outpatient by Dr. Aldrich. I do, however, have records from Dr. Rios regarding her uterine adenomyosis and the intended plan for uterine artery embolization. She recently had a pelvis MRI th at ruled out fibroids as a significant cause of her issues. ASSESSMENT AND PLAN: 1. Epigastric pain. She had an EGD in March and was diagnosed with Helicobacter pylori positive gastritis for which she was compliant with a full course of antibiotic treatment. We will place her on IV proton pump inhibitor. We will check an abdominal ultrasound to make sure it is not her gallbl adder causing these symptoms. Will hold off on a CT scan of the abdomen and pelvis as she has a rigo cute abdomen, and she had a CT scan the last time she had similar symptoms, and it was unremarkable. Gastroenterology has been consulted, Dr. Stewart. Will keep her n.p.o. after midnight in case EGD is i ndicated tomorrow. 2. Iron-deficiency anemia. I suspect this is more due to her heavy menses rather than gastrointesti nal blood loss. Could consider IV iron. 3. Uterine adenomyosis. Uterine artery embolization with Dr. Rios is to be scheduled soon. CODE STATUS: Full. ADMISSION STATUS: 1. Will admit to observation and re-evaluate tomorrow regarding ongoing need for hospitalization. 2. DVT prophylaxis. She is low risk. /[id number]/MODL
[2017-09-13] MEDS: traMADol 50 MG TAB PO PRN ×3 (03:56→17:53)
[2017-09-13 05:18] LABS: PLATELET COUNT 261 10^3/uL (150-400)
[2017-09-13] MEDS: PROMETHAZINE HCL 25 MG/ML INJ IVP PRN ×2 (07:34→14:35)
[2017-09-13] MEDS ORDERED: PREGABALIN 150 MG CAP PO SCH (09:00)
[2017-09-13] MEDS: PANTOPRAZOLE SODIUM 40 MG VIAL IVP SCH (09:07)
[2017-09-13] MEDS ORDERED: PREGABALIN 75 MG CAP PO SCH ×2 (09:15)
[2017-09-13] MEDS: NS 1,000 ML IV SCH (09:49)
[2017-09-13] MEDS ORDERED: LR 1,000 ML IV ONE (10:39)
[2017-09-13] MEDS ORDERED: PROMETHAZINE HCL 25 MG/ML INJ IVP ONE (10:44)
[2017-09-13] MEDS ORDERED: PROMETHAZINE HCL 25 MG/ML INJ ONE (10:45)
--- NOTE | 2017-09-13 10:46 | ASMTCMCOM ---
CM Note CM Note Notes: Patient admitted with abdominal pain. In March, she admitted with similiar symptoms and was diagnosed w H Pylori positive gastritis. She completed her 4 month course of antibiotics. Patient had an unremarkable abdominal Xray today. GI has been consulted to assess for need for EGD. Patient is normally independent, has children and lives with . No discharge needs anticipated, but Case Management available if this changes. Date Signed: 09/13/2017 10:46 AM Electronically Signed By:Deya Bermudez RN
--- NOTE | 2017-09-13 10:50 | PDANEPAE ---
ANE History of Present Illness 36 yo female admitted with severe N/V for two days. Similar episode in March 2017, diagnosed with H pylori at that time. Recently stopped taking her omeprazole. ANE Past Medical History - Cardiovascular History Hx Hypertension: No Hx Arrhythmias: No Hx Chest Pain: No Hx Coronary Artery / Peripheral Vascular Disease: No Hx CHF / Valvular Disease: No Hx Palpitations: No Cardiovascular History Comment: IRREG HB W/EXERCISE - Pulmonary History Hx COPD: No Hx Asthma/Reactive Airway Disease: Yes Hx Recent Upper Respiratory Infection: No Hx Oxygen in Use at Home: No Hx Sleep Apnea: No Sleep Apnea Screening Result - Last Documented: Negative Pulmonary History Comment: ENVIRONMENTAL & EXERCISE INDUCE ASTHMA - Neurologic History Hx Cerebrovascular Accident: No Hx Seizures: No Hx Dementia: No Neurologic History Comment: MIGRAINES ALMOST DAILY - Endocrine History Hx Diabetes: No Hyperthyroid: No Obesity: no - Renal History Hx Renal Disorders: No - Liver History Hx Hepatic Disorders: No - Neurological & Psychiatric Hx Hx Neurological and Psychiatric Disorders: No - Cancer History Hx Cancer: No - Congenital Disorder History Hx Congenital Disorders: Yes Congenital History Comment: heart transplants - GI History Hx Gastrointestinal Disorders: Yes Gastrointestinal History Comment: diarrhea,brat diet - Other Health History Other Health History: ECZEMA - HANDS. missing teeth lower. low estrogen, elevated prolactin - Chronic Pain History Chronic Pain: Yes (buttocks,lower back) - Surgical History Prior Surgeries: FOOT SURGERY - FB REM. D&C. EPIDURAL INJS/ABLATIONS LUMBAR. SKIN GRAFT ANE Review of Systems Review of Systems: - Systems Gastrointestinal: Reports: vomitting, nausea ANE Patient History - Allergies Allergies/Adverse Reactions: shellfish derived Allergy (Severe, Verified 09/12/17 19:31) Anaphylaxis iodine Allergy (Intermediate, Verified 09/12/17 19:31) Other-Enter Comments shellfish Allergy (Severe, Uncoded 09/12/17 19:31) Anaphylaxis - Home Medications Home Medications: Albuterol [Proventil Inhaler HFA (*)] 1 - 2 puffs IH Q4H PRN 06/29/17 [Last Taken Unknown] EPINEPHrine [Epipen 0.3 MG] 0.3 mg IM PRN PRN 06/29/17 [Last Taken Unknown] Herbals/Supplements -Info Only 1 ea PO DAILY 06/29/17 [Last Taken Unknown] Pregabalin [Lyrica 150mg (*)] 150 mg PO BID 06/29/17 [Last Taken 09/09/17] traMADol [Ultram 50 mg (*)] 50 mg PO QID PRN 06/29/17 [Last Taken 09/09/17] tiZANidine HCL [Zanaflex 2MG (*)] 2 mg PO Q6 PRN 09/12/17 [Last Taken 09/09/17] - NPO status NPO Since - Liquids (Date): 09/13/17 NPO Since - Liquids (Time): 00:00 NPO Since - Solids (Date): 09/13/17 NPO Since - Solids (Time): 00:00 - Smoking Hx Smoking Status: Never smoked - Family Anes Hx Family Hx Anesthesia Complications: none ANE Labs/Vital Signs - Labs Result Diagrams: 09/13/17 04:38 09/13/17 04:38 - Vital Signs Blood Pressure: 163/113 Heart Rate: 73 Respiratory Rate: 16 O2 Sat (%): 99 Height: 165.1 cm Weight: 53.524 kg ANE Physical Exam - Airway Neck exam: FROM Mallampati Score: Class 3 Mouth exam: small mouth opening - Pulmonary Pulmonary: clear to auscultation - Cardiovascular Cardiovascular: regular rate and rhythym - ASA Status ASA Status: III ANE Anesthesia Plan Anesthesia Plan: GA with mask Total IV Anesthesia: Yes
[2017-09-13] MEDS ORDERED: DEXAMETHASONE 4 MG/ML VIAL ONE (10:51)
[2017-09-13] MEDS ORDERED: PROPOFOL/EMULSION 500 MG/50 ML BOTTLE IV ONE (10:51)
[2017-09-13] MEDS ORDERED: ALBUTEROL 3 ML DEYVIAL IH PRN (11:14)
[2017-09-13] MEDS ORDERED: PROMETHAZINE HCL 25 MG/ML INJ IVP PRN (11:14)
[2017-09-13] MEDS ORDERED: LR 500 ML IV PRN (11:14)
[2017-09-13] MEDS ORDERED: NALOXONE HCL 0.4 MG/ML INJ IVP PRN (11:14)
[2017-09-13] MEDS ORDERED: DIAZEPAM 5 MG/ML 1 ML SYR IVP PRN (11:14)
--- NOTE | 2017-09-13 11:18 | POSTANESTH ---
Post Anesthetic Evaluation Cardiovascular Status: Normal, Stable Respiratory Status: Normal, Stable Level of Consciousness/Mental Status: Moderately Sleepy Complications Possibly Related to Anesthesia: Other, See Comments (Abdominal pain similar to pre-op level, nausea slightly improved over pre-op level)
--- NOTE | 2017-09-13 11:32 | GCON ---
[f rep st] CONSULTATION DATE OF CONSULTATION: 09/13/2017 CONSULTING PHYSICIAN: Miracle Escamilla MD. REASON FOR CONSULTATION: Epigastric abdominal pain. CHIEF COMPLAINT: Epigastric abdominal pain, nausea and vomiting. HISTORY OF PRESENT ILLNESS: The patient is a 36-year-old female with a history of iron deficiency anemia, H pylori, cough, chronic back pain, who presents to [facility] with complaints of epigastric abdominal pain, nausea, and vomiting. She was in her normal state of health until approximately 2 days prior to admission, when she started to experience a sharp pain in her epigastric area. This pain has been waxing and waning, but fairly progressive. She does state the pain radiates to her back. She has also had significant nausea and vomiting and has not been able to have any significant oral intake without vomiting. She has had mild diarrhea. She feels that food makes her symptoms worse and gets some alleviation with antiemetics and pain medications. The patient had similar symptoms in March of last year. She had an upper endoscopy with Dr. Aldrich, which did reveal H pylori gastritis as well as duodenitis. She has been following with him as an outpatient. I am being asked by Dr. Escamilla to evaluate this patient in consultation regarding her epigastric abdominal pain, nausea, and vomiting. PAST MEDICAL HISTORY: Degenerative joint disease, H pylori, globus, gastroesophageal reflux disease, uterine adenomyosis, iron deficiency anemia, asthma. PAST SURGICAL HISTORY: Skin graft, foot surgery, left thyroidectomy. ALLERGIES: Iodine and selfish. MEDICATIONS: 1. Albuterol inhaler. 2. Epinephrine pen p.r.n. 3. Herbal supplementation. 4. Omeprazole 20 mg p.o. b.i.d. 5. Lyrica 150 mg p.o. b.i.d. 6. Tramadol 50 mg as needed. FAMILY HISTORY: Father: Chronic kidney disease. SOCIAL HISTORY: No significant cigarette use. No significant alcohol use. . REVIEW OF SYSTEMS: A 14-point comprehensive review of systems was asked. Pertinent positives and negatives per HPI. PHYSICAL EXAM: VITALS: Blood pressure 141/104, heart rate 98, temperature 36.7 , respirations 15. GENERAL: Awake, alert, oriented x3. HEENT: Anicteric sclerae. Moist mucosa. NECK: No JVD. CARDIOVASCULAR: Regular rate and rhythm. Positive S1, S2. LUNGS: Clear to auscultation bilaterally. No wheezes, rales, or rhonchi. ABDOMEN: Soft. Epigastric tenderness to deep palpation. No guarding. No rebound. No splenomegaly. EXTREMITIES: No clubbing, cyanosis, or edema. NEUROLOGIC: Cranial nerves 2 through 12 grossly intact. SKIN: No rash. PSYCH: Normal affect. MUSCULOSKELETAL: No obvious joint effusions or deformities. LYMPH: No lymphadenopathy. BLOOD WORK: WBCs 4.3, hemoglobin 8.7, hematocrit 29.2, MCV 78.7, platelets 261. Sodium 141, potassium 3.9, chloride 107, bicarb 21, BUN 10, creatinine 0.8. Iron 17, iron sat 4. Beta HCG negative. AST 25, ALT 23, alkaline phosphatase 45. Abdominal ultrasound on 09/13/2017: No evidence of cholelithiasis or cholecystitis. Pelvis MRI on 08/14/2017: Adenomyosis. Abdominal CT scan on 04/21/2017, with IV contrast: No obvious acute finding. ASSESSMENT AND PLAN: 1. Abdominal pain-epigastric with nausea and vomiting. Had a similar episode in March. Had a prior EGD, which was unrevealing except for Helicobacter pylori gastritis which was treated. Also had an ultrasound during this admission which was unrevealing. He had a prior CT in March which was unrevealing. Etiology? Functional pain versus peptic ulcer disease versus other? At this time, I will proceed with upper endoscopy to delineate the cause of her symptoms. The risks, benefits, and alternatives of the procedure were discussed in great detail with the patient. The risks of infection, bleeding, perforation, and sedation were discussed. Due to her asthma, she is at increased risk of sedation and will ask anesthesiology for support. If EGD unrevealing, would continue to monitor LFTs and would consider repeat imaging. 2. Adenomyosis. 3. Iron deficiency anemia-suspect secondary to gynecologic cause. 4. Degenerative joint disease. 5. Helicobacter pylori gastritis. 6. Gastroesophageal reflux disease. 7. Asthma. Thank you very much for this consultation. /[id number]/MODL MTDD
--- NOTE | 2017-09-13 12:02 | GPN ---
[f rep st] PROCEDURE NOTE DATE OF PROCEDURE: 09/13/2017 PROCEDURE: Esophagogastroduodenoscopy with biopsy. INDICATION: The patient is a 36-year-old female who presents for evaluation of epigastric abdominal pain, nausea, vomiting. CONSENT: Risks, benefits, and alternatives of the procedure were discussed in great detail with the patient. Risks of infection, bleeding, perforation, and sedation were discussed. All questions answered informed obtained. MEDICATIONS: Propofol Please see anesthesia record for details. ESOPHAGOGASTRODUODENOSCOPY EXAMINATION: The Olympus upper endoscope was introduced in the mouth and advanced into the esophagus. The proximal, mid, and distal esophagus was normal in appearance. The stomach was entered and closely examined, including retroflexed views of the angularis, cardia, and fundus. A large hiatal hernia present. This was mildly erythematous in the antrum and body and biopsies were taken. The duodenal bulb and second portion of the duodenum were normal in appearance. Biopsies were taken to rule out celiac disease. IMPRESSION: 1. Mild gastritis status post biopsy. 2. Biopsies taken to rule out celiac disease. 3. No obvious cause of pain seen. RECOMMENDATIONS: 1. Follow up on biopsy results. 2. Monitor LFTs. 3. Consider CT scan of IV and p.o. contrast if symptoms do not resolve. 4. Ok to restart diet. /[id number]/MODL MTDD
[2017-09-13] MEDS ORDERED: MBX SOLN 30 ML BOTTLE PO PRN (13:07)
[2017-09-13] MEDS ORDERED: SODIUM FERRIC GLUCONAT/SUCROSE 125 MG in NS 100 ML IV ONE (13:13)
--- NOTE | 2017-09-13 13:13 | HOSPPROG ---
Hospitalist Progress Note Assessment/Plan: 36 yo F w epigastric pain, gastritis, iron deficiency anemia 1. iv iron 2. ppi, carafate and gi cocktail 3. home today Subjective: egd w gastritis. case d/w dr quevedo Objective: Vital Signs Temp Pulse Resp BP Pulse Ox 37.3 C 90 16 143/94 H 100 09/13/17 11:10 09/13/17 11:27 09/13/17 11:42 09/13/17 11:42 09/13/17 11:42 Laboratory Results 09/13/17 04:38 09/13/17 04:38 09/12/17 09/13/17 09/14/17 05:59 05:59 05:59 Intake Total 2588 300 Output Total 400 Balance 2188 300 - Physical Exam Constitutional: no apparent distress, appears nourished Eyes: PERRL, anicteric sclera Ears, Nose, Mouth, Throat: moist mucous membranes, hearing normal Cardiovascular: regular rate and rhythym, no murmur, rub, or gallop Respiratory: no respiratory distress, no rales or rhonchi Gastrointestinal: normoactive bowel sounds, soft, non-tender abdomen Genitourinary: No rondon in urethra Skin: warm, normal color Musculoskeletal: full muscle strength, no muscle tenderness Neurologic: AAOx3, sensation intact bilaterally ICD10 Worksheet Patient Problems: Problems Problem Status Onset Abdominal pain Acute Gastritis Acute Vomiting Acute
--- NOTE | 2017-09-13 13:43 | GDS ---
[f rep st] DISCHARGE SUMMARY DISCHARGE DIAGNOSES: 1. Epigastric pain, likely secondary to gastritis. 2. Recent thyroidectomy. 3. History of Helicobacter pylori. 4. Iron deficiency anemia. 5. Endometriosis. 6. Chronic back pain. HOSPITAL COURSE: Please see admission history and physical by Dr. Tayler Escamilla. The patient prese nted with epigastric pain. It was very similar to her previous presentation with H pylori positive g astritis. EGD was performed today and she again had gastritis. There is no evidence of acute GI ble ed, but she does have persistent iron deficiency anemia. The patient was put on a proton pump inhibi tor she is to take twice a day for a month, as well as Carafate for 2 weeks. She was given a GI cock tail while here. She was given a dose of IV iron given her low MCV and iron deficiency on labs. She was also given Phenergan for home. She is discharged home once she is tolerating p.o. /[id number]/MODL
[2017-09-13 16:32] VITALS: BP 130/80
[2017-09-13] MEDS ORDERED: SUCRALFATE 1 GM/10 ML UDCUP PO SCH (17:30)
[2017-09-13] MEDS ORDERED: SUCRALFATE 1 GM TAB PO SCH (17:30)
== END 2017-09-13 19:23 | disposition home or self-care (01) ==
LOC: F3N 22:16
PROVIDERS: ADMIT Internal Medicine; ATTEND Internal Medicine
DX: K29.70 Gastritis, unspecified, without bleeding (principal); K21.9 Gastro-esophageal reflux disease without esophagitis; D50.9 Iron deficiency anemia, unspecified
CPT/HCPCS: 43239; 76705; G0378; J1100; J1170; J1885; J2270; J2405; J2550; J2704; J2916

== ENCOUNTER 2017-09-18 15:46 | Emergency (ER) | payer OTHER ==
[2017-09-18] MEDS ORDERED: NS 1,000 ML IV ONE ×2 (17:43→18:19)
[2017-09-18 17:48] LABS: PLATELET COUNT 311 10^3/uL (150-400)
[2017-09-18] MEDS ORDERED: ONDANSETRON 4 MG/2 ML VIAL IVP ONE (18:19)
[2017-09-18] MEDS ORDERED: methylPREDNISolone SOD SUCC 125 MG/2 ML VIAL IVP ONE (18:19)
--- NOTE | 2017-09-18 18:19 | EDPHY ---
H & P Time Seen by Provider: 09/18/17 17:46 HPI/ROS: Chief complaint. Abdominal pain HPI. Patient is a 36-year-old female was discharged from the hospital about 5 days ago. She has had nausea and vomiting since. No bowel movement since discharge. Gradually getting weaker and weight loss. She feels her heart is pounding. Fever and chills. No chest discomfort or shortness of breath. Burping a lot. Upper abdominal pain that she describes as sharp and crampy without radiation. No urinary symptoms. Heavy menses currently. Similar symptoms previously ROS Constitutional. Fever and chills Eyes. no problems with vision ENT. no sore throat, no nasal drainage Cardiovascular. Heart pounding Respiratory. no shortness of breath, no cough Abdominal. Upper abdominal pain with nausea vomiting. No bowel movement for 5 days . no problems urinating MS. no calf pain/swelling, no neck/back pain, no joint pain Skin. no rash Lymph. no swollen glands Neuro. no headache, no dizziness, no difficulty walking or with speech Past Medical/Surgical History: Past medical history is significant for uterine fibroids, endometriosis, thyroidectomy, iron deficiency anemia chronic back pain, H pylori Social History: , nonsmoker, no alcohol Smoking Status: Never smoked Physical Exam: General Appearance: Alert pleasant well-developed female mild distress vital signs show heart rate of 110 Eyes: Pupils equal and round no pallor or injection. ENT, Mouth: Mucous membranes are moist. Respiratory: There are no retractions, lungs are clear to auscultation. Cardiovascular: Regular rate and rhythm with tachycardia Gastrointestinal: Abdomen is soft with tenderness in the epigastrium left upper quadrant. No masses. Increased bowel sounds. Neurological: Awake and alert, sensory and motor exams grossly normal. Skin: Warm and dry, no rashes. Musculoskeletal: Neck is supple nontender. Extremities symmetrical, full range of motion. Psychiatric: Patient is oriented X 3, there is no agitation. Constitutional: Initial Vital Signs Temperature (C) 36.9 C 09/18/17 16:08 Heart Rate 110 H 09/18/17 16:08 Respiratory Rate 18 09/18/17 16:08 Blood Pressure 127/97 H 09/18/17 16:08 O2 Sat (%) 98 09/18/17 16:08 O2 Delivery Mode Room Air Allergies/Adverse Reactions: shellfish derived Allergy (Severe, Verified 09/18/17 16:07) Anaphylaxis iodine Allergy (Intermediate, Verified 09/18/17 16:07) Other-Enter Comments shellfish Allergy (Severe, Uncoded 09/12/17 19:31) Anaphylaxis Home Medications: Medication Instructions Recorded Albuterol [Proventil Inhaler HFA 1 - 2 puffs IH Q4H PRN 06/29/17 (*)] EPINEPHrine [Epipen 0.3 MG] 0.3 mg IM PRN PRN 06/29/17 Herbals/Supplements -Info Only 1 ea PO DAILY 06/29/17 Pregabalin [Lyrica 150mg (*)] 150 mg PO BID 06/29/17 traMADol [Ultram 50 mg (*)] 50 mg PO QID PRN 06/29/17 tiZANidine HCL [Zanaflex 2MG (*)] 2 mg PO Q6 PRN 09/12/17 Pantoprazole Sodium [Protonix] 40 mg PO BID #60 tablet. 09/13/17 Promethazine HCl [Phenergan 25mg 25 mg PO Q6 PRN #20 tab 09/13/17 (*)] Sucralfate [Carafate 1 GM (*)] 1 gm PO ACHS #56 tab 09/13/17 Promethazine HCl [Phenergan 25mg 25 mg PO Q4-6PRN PRN #14 tab 09/18/17 (*)] Medical Decision Making - Diagnostics Imaging Results: Imaging Impressions Abdomen CT 09/18/17 18:19 Impression: 1. Mild constipation. 2. No CT evidence of appendicitis, abscess, or bowel obstruction. Findings and recommendations discussed with Emergency Department physician, Keith Shelton M.D., at 2012 hours, on September 18, 2017. Final report concurs with initial preliminary interpretation. CT abdomen pelvis with IV contrast shows no evidence of appendicitis, diverticulitis, abscess, bowel obstruction. Mild constipation. Reviewed by me and discussed with Procedures: IV normal saline. Zofran IV Patient has iodine allergy and shellfish allergy she has pretreated with Benadryl and Solu-Medrol IV before CT ED Course/Re-evaluation: Re-evaluation 8:25 p.m.. Patient and I discussed imaging and lab results. We discussed treatment plan. Patient is stable. She has had no vomiting. Patient and and I discussed imaging and lab results. We discussed treatment plan including criteria for return importance of follow-up and further evaluation. She expresses understanding and agreement Differential Diagnosis: I considered diverticulitis, appendicitis, pancreatitis. She has already had gallbladder ultrasound that was normal. Considered dehydration electrolyte abnormalities. - Data Points Laboratory Results: Laboratory Results 09/18/17 14:00 09/18/17 14:00 09/18/17 09/18/17 09/18/17 17:18 17:18 14:00 WBC RBC Hgb Hct MCV MCH MCHC RDW Plt Count MPV Neut % (Auto) Lymph % (Auto) Stearns % (Auto) Eos % (Auto) Baso % (Auto) Nucleat RBC Rel Count Absolute Neuts (auto) Absolute Lymphs (auto) Absolute Monos (auto) Absolute Eos (auto) Absolute Basos (auto) Absolute Nucleated RBC Immature Gran % Immature Gran # Sodium 136 mEq/L mEq/L (135-145) Potassium 4.1 mEq/L mEq/L (3.3-5.0) Chloride 100 mEq/L mEq/L (97-110) Carbon Dioxide 23 mEq/l mEq/l (22-31) Anion Gap 13 mEq/L mEq/L (8-16) BUN 8 mg/dL mg/dL (7-23) Creatinine 0.8 mg/dL mg/dL (0.6-1.0) Estimated GFR > 60 Glucose 98 mg/dL mg/dL (70-100) Calcium 9.9 mg/dL mg/dL (8.5-10.4) Total Bilirubin 0.5 mg/dL mg/dL (0.1-1.4) Conjugated Bilirubin 0.4 mg/dL mg/dL (0.0-0.5) Unconjugated Bilirubin 0.1 mg/dL mg/dL (0.0-1.1) AST 23 IU/L IU/L (14-46) ALT 21 IU/L IU/L (9-52) Alkaline Phosphatase 35 IU/L L IU/L (38-126) Total Protein 7.7 g/dL g/dL (6.3-8.2) Albumin 4.6 g/dL g/dL (3.5-5.0) Lipase 281 IU/L IU/L (23-300) Beta HCG, Qual NEGATIVE 09/18/17 14:00 WBC 3.49 10^3/uL L 10^3/uL (3.80-9.50) RBC 4.70 10^6/uL 10^6/uL (4.18-5.33) Hgb 11.2 g/dL L g/dL (12.6-16.3) Hct 36.5 % L % (38.0-47.0) MCV 77.7 fL L fL (81.5-99.8) MCH 23.8 pg L pg (27.9-34.1) MCHC 30.7 g/dL L g/dL (32.4-36.7) RDW 17.2 % H % (11.5-15.2) Plt Count 311 10^3/uL 10^3/uL (150-400) MPV 10.5 fL fL (8.7-11.7) Neut % (Auto) 55.9 % % (39.3-74.2) Lymph % (Auto) 33.5 % % (15.0-45.0) Stearns % (Auto) 8.3 % % (4.5-13.0) Eos % (Auto) 0.6 % % (0.6-7.6) Baso % (Auto) 1.4 % % (0.3-1.7) Nucleat RBC Rel Count 0.0 % % (0.0-0.2) Absolute Neuts (auto) 1.95 10^3/uL 10^3/uL (1.70-6.50) Absolute Lymphs (auto) 1.17 10^3/uL 10^3/uL (1.00-3.00) Absolute Monos (auto) 0.29 10^3/uL L 10^3/uL (0.30-0.80) Absolute Eos (auto) 0.02 10^3/uL L 10^3/uL (0.03-0.40) Absolute Basos (auto) 0.05 10^3/uL 10^3/uL (0.02-0.10) Absolute Nucleated RBC 0.00 10^3/uL 10^3/uL (0-0.01) Immature Gran % 0.3 % % (0.0-1.1) Immature Gran # 0.01 10^3/uL 10^3/uL (0.00-0.10) Sodium Potassium Chloride Carbon Dioxide Anion Gap BUN Creatinine Estimated GFR Glucose Calcium Total Bilirubin Conjugated Bilirubin Unconjugated Bilirubin AST ALT Alkaline Phosphatase Total Protein Albumin Lipase Beta HCG, Qual Medications Given: Discontinued Medications Diphenhydramine HCl (Benadryl Injection) 25 mg IVP EDNOW ONE Stop: 09/18/17 18:20 Last Admin: 09/18/17 18:46 Dose: 25 mg Sodium Chloride (Ns) 1,000 mls @ 0 mls/hr IV ONCE ONE PRN Reason: Wide Open Stop: 09/18/17 17:44 Last Admin: 09/18/17 18:42 Dose: 1,000 mls Sodium Chloride (Ns) 1,000 mls @ 0 mls/hr IV EDNOW ONE; Wide Open PRN Reason: Protocol Stop: 09/18/17 18:20 Last Admin: 09/18/17 18:42 Dose: 1,000 mls Methylprednisolone Sodium Succinate (Solu-Medrol) 125 mg IVP EDNOW ONE Stop: 09/18/17 18:20 Last Admin: 09/18/17 18:46 Dose: 125 mg Ondansetron HCl (Zofran) 4 mg IVP EDNOW ONE Stop: 09/18/17 18:20 Last Admin: 09/18/17 18:43 Dose: 4 mg Departure - Departure Disposition: Home, Routine, Self-Care Clinical Impression: Vomiting Qualifiers: Vomiting type: unspecified Vomiting Intractability: non-intractable Nausea presence: with nausea Qualified Code(s): R11.2 - Nausea with vomiting, unspecified Abdominal pain Qualifiers: Abdominal location: left upper quadrant Qualified Code(s): R10.12 - Left upper quadrant pain Condition: Good Instructions: Acute Nausea and Vomiting (ED) Additional Instructions: Phenergan as needed For nausea and vomiting. Frequent, small sips fluids. Gradual diet advancement. Return for worsening abdominal pain, vomiting, fever. Recheck in 2 days if not improved. Follow up with Dr. Moyer on Thursday. Referrals: Marcy Moyer MD [Primary Care Provider] - 5-7 days, call for appt. Prescriptions: Promethazine HCl [Phenergan 25mg (*)] 25 mg PO Q4-6PRN PRN #14 tab PRN Reason: Nausea/Vomiting, Use 1st
[2017-09-18] MEDS ORDERED: IOPAMIDOL (ISOVUE-300) 100 ML BTL ONE (18:22)
[2017-09-18 20:55] VITALS: BP 112/88
== END 2017-09-18 20:55 | disposition home or self-care (01) ==
DX: R11.2 Nausea with vomiting, unspecified (principal); R10.12 Left upper quadrant pain; E86.9 Volume depletion, unspecified
CPT/HCPCS: 74177; 96361; 96374; 96375; 99285; J1200; J2405; J2930; Q9967

== ENCOUNTER 2018-03-12 07:35 | Inpatient (IN) | payer OTHER ==
[2018-03-12] MEDS ORDERED: IOPAMIDOL (ISOVUE-300) 100 ML BTL ONE ×3 (07:46→12:25)
[2018-03-12] MEDS ORDERED: LIDOCAINE 1% 300 MG/30 ML SDV ONE ×2 (07:46→12:25)
[2018-03-12] MEDS ORDERED: KETOROLAC 30 MG/1 ML SDV IVP ONE (07:57)
[2018-03-12] MEDS ORDERED: NALOXONE HCL 0.4 MG/ML INJ IVP PRN ×2 (07:57→08:01)
[2018-03-12] MEDS ORDERED: SCOPOLAMINE HYDROBROMIDE 1 MG/3 DAYS PATCH TD ONE ×2 (07:57→08:10)
[2018-03-12] MEDS ORDERED: NS 1,000 ML IV ONE (07:57)
[2018-03-12] MEDS ORDERED: fentaNYL 100 MCG/2 ML INJ IVP PRN (07:57)
[2018-03-12] MEDS ORDERED: MIDAZOLAM 2 MG/2 ML VIAL IVP PRN (07:57)
[2018-03-12] MEDS ORDERED: DEXAMETHASONE 10 MG/ML VIAL IVP ONE (07:57)
[2018-03-12] MEDS ORDERED: FLUMAZENIL 0.5 MG/5 ML MDV IVP PRN (07:57)
[2018-03-12] MEDS ORDERED: DEXMEDETOMIDINE HCL 200 MCG in NS 50 ML IV ONE (08:00)
[2018-03-12] MEDS ORDERED: FLUMAZENIL 0.5 MG/5 ML MDV IVP ONE (08:09)
[2018-03-12] MEDS ORDERED: KETOROLAC 15 MG/1 ML SDV ONE (08:09)
[2018-03-12] MEDS ORDERED: MIDAZOLAM 2 MG/2 ML VIAL ONE ×2 (08:10→11:11)
[2018-03-12] MEDS ORDERED: DEXAMETHASONE 10 MG/ML VIAL ONE (08:10)
[2018-03-12] MEDS ORDERED: fentaNYL 100 MCG/2 ML INJ ONE ×2 (08:10→11:11)
[2018-03-12 08:42] LABS: PLATELET COUNT 219 10^3/uL (150-400)
[2018-03-12 08:53] LABS: INR 0.91 (0.83-1.16); PROTIME(PATIENT) 12.5 SEC (12.0-15.0)
--- NOTE | 2018-03-12 09:23 | PDGENHP ---
History & Physical Chief Complaint: HEAVY MENSTRATION History of Present Illness: SYMPTOMATIC UTERINE FIBROIDS Pertinent Past, Social, Family History: NON-SMOKER; Relevant Physical Exam: BLOATING LLQ. Cardiorespiratory Assessment: RRR, CTA
--- NOTE | 2018-03-12 09:23 | PDPROPOC ---
Sedation Plan of Care Sedation Plan of Care: vital signs stable, mental status noted, patient educated of risks, benefits, alternatives, patient can tolerate sedation ASA Classification: ASA 1 Planned drugs: fentanyl, midazolam Mallampati Score: Class 1 Mallampati Reference Image: Patient passed 3-3-2 rule?: Yes
[2018-03-12] MEDS ORDERED: NITROGLYCERIN/D5W 50 MG/250 ML BOTTLE IV ONE (10:28)
[2018-03-12] MEDS ORDERED: MAGNESIUM HYDROXIDE 30 ML UDCUP PO PRN (11:36)
[2018-03-12] MEDS ORDERED: BISACODYL 10 MG SUPP PR PRN (11:36)
[2018-03-12] MEDS ORDERED: LACTULOSE 20 GM/30 ML UDCUP PO PRN (11:36)
[2018-03-12] MEDS ORDERED: POLYETHYLENE GLYCOL 3350 17 GM PKT PO PRN (11:36)
--- NOTE | 2018-03-12 11:41 | PDRADPN ---
Radiology Procedure Note Date of Procedure: 03/12/18 Radiologist: Carolyn Rios Anesthesia: IV Sedation Pre-op Diagnosis: SYMPTOMATIC FIBROIDS Post-op Diagnosis: SAME Indication: HEAVY MENSTRATIN Procedure: UAE Inf/Abcess present in the surg proc area at time of surgery?: No
[2018-03-12] MEDS ORDERED: NS 1,000 ML IV SCH ×2 (11:45)
[2018-03-12] MEDS ORDERED: BUPIVACAINE 0.5% 30 ML SDV ONE (11:53)
[2018-03-12] MEDS: HYDROmorphONE/DILAUDID 6 MG/30 ML PCA IV PRN ×2 (12:35→18:37)
[2018-03-12] MEDS: fentaNYL 100 MCG/2 ML INJ IVP PRN ×3 (14:43→23:16)
[2018-03-12] MEDS: KETOROLAC 30 MG/1 ML SDV IVP SCH ×2 (14:44→21:07)
[2018-03-12] MEDS: morphINE SR 15 MG TAB PO SCH ×2 (19:08→21:08)
[2018-03-12] MEDS: SENNOSIDES/DOCUSATE SODIUM TAB PO SCH (21:00)
[2018-03-12] MEDS ORDERED: ONDANSETRON 4 MG/2 ML VIAL IVP PRN (23:22)
[2018-03-12] MEDS ORDERED: PROMETHAZINE HCL 25 MG/ML INJ IV PRN (23:22)
[2018-03-13] MEDS: HYDROmorphONE/DILAUDID 6 MG/30 ML PCA IV PRN ×2 (02:10→11:10)
[2018-03-13] MEDS ORDERED: IOPAMIDOL (ISOVUE-300) 100 ML BTL ONE (02:19)
--- NOTE | 2018-03-13 03:34 | SOAPPROG ---
SOAP Progress Note Assessment/Plan: Assessment: As anticipated immediately post op after UAE. Discussed expectations for tonight, both before procedure, as well as just now reiterated. Patient and expressed understanding. No additional input/requests from patient at this time. Plan: 1. Continue with pain management. Discussed how to begin weaning off of RESIDENTIAL LAWN SPECIALIST while oral meds are tolerated. 2. Continue with rondon. 03/13/18 03:35 Subjective: Visited with patient. in room with young daughter. Patient has dark sunglasses on. Was not able to have direct eye contact. Main complaint is pain. She's had 50ugm Fentany IV Q4hrs since CVC. Also has started on oral MS Contin long acting, last dose at 2pm. Next planned dose is at 9pm. She is denying any significant N/V at this time. She is able to have coherent communication. Dilaudid RESIDENTIAL LAWN SPECIALIST is set at 0.4ugm/15min. Rondon in place. Objective: Vital Signs Temp Pulse Resp BP Pulse Ox 36.4 C 72 16 132/86 H 100 03/13/18 02:00 03/13/18 02:00 03/13/18 02:00 03/13/18 02:00 03/13/18 02:00 Laboratory Results 03/12/18 08:30 03/12/18 08:30 03/11/18 03/12/18 03/13/18 05:59 05:59 05:59 Intake Total 3770 Output Total 855 Balance 2915 PT 12.5 SEC (12.0-15.0) 03/12/18 08:30 INR 0.91 (0.83-1.16) 03/12/18 08:30 Abd without rebound tenderness. Slightly full at uterine level, as anticipated due to post op swelling. RT groin without hematoma. Pulses normal. ICD10 Worksheet Patient Problems: Problems Problem Status Onset Abdominal pain Acute Gastritis Acute Vomiting Acute
--- NOTE | 2018-03-13 03:43 | SOAPPROG ---
SOAP Progress Note Assessment/Plan: Assessment: As anticipated immediately post op after UAE. Discussed expectations for tonight, both before procedure, as well as just now reiterated. Patient and expressed understanding. No additional input/requests from patient at this time. Plan: 1. Continue with pain management. Discussed how to begin weaning off of WOOD MILLING MACHINE OPERATOR while oral meds are tolerated. 2. Continue with rondon. 03/13/18 03:35 03/13/18 03:43 1. Apparently continued poor pain management despite of a large amount of narcotics used. 2. Will obtain CT of abd/pelv to check anatomy and uterine perfusion. Subjective: Called by nurse this am regarding poor pain control. Patient has continued with Q4hr Fentanyl, and has now finished the second refill of Dilaudid WOOD MILLING MACHINE OPERATOR. Nurse reports patient is intermittently tearful. Reporting pain at 7-8/10. has left with daughter earlier. I talked with patient on phone. She sounded calm. Was able to have fully coherent conversation and did not sound slurred. She did not sound in distress. Main complaint is LLQ pain. We discussed options: anesthesia/pain management consult; CT for evaluation of any anatomical abnormalities; versus continue with current regiment. I voiced that this is extremely unusual at this juncture post procedure. This is actually first patient I've ever had to prescribe Fentanyl on a routine basis, and that with all the pain meds on board , she's still reporting much pain. I also discussed my hesitancy in going forward with any potential invasive approach, such as epidural or another block , for pain control. Patient agreed to proceed with CT first. Objective: Vital Signs Temp Pulse Resp BP Pulse Ox 36.4 C 72 16 132/86 H 100 03/13/18 02:00 03/13/18 02:00 03/13/18 02:00 03/13/18 02:00 03/13/18 02:00 Laboratory Results 03/12/18 08:30 03/12/18 08:30 03/11/18 03/12/18 03/13/18 05:59 05:59 05:59 Intake Total 3770 Output Total 855 Balance 2915 PT 12.5 SEC (12.0-15.0) 03/12/18 08:30 INR 0.91 (0.83-1.16) 03/12/18 08:30 ICD10 Worksheet Patient Problems: Problems Problem Status Onset Abdominal pain Acute Gastritis Acute Vomiting Acute
--- NOTE | 2018-03-13 03:58 | SOAPPROG ---
SOAP Progress Note Assessment/Plan: Assessment: As anticipated immediately post op after UAE. Discussed expectations for tonight, both before procedure, as well as just now reiterated. Patient and expressed understanding. No additional input/requests from patient at this time. Plan: 1. Continue with pain management. Discussed how to begin weaning off of [employer] INTERMODAL TRUCK DRIVER while oral meds are tolerated. 2. Continue with rondon. 03/13/18 03:35 03/13/18 03:43 1. Apparently continued poor pain management despite of a large amount of narcotics used. 2. Will obtain CT of abd/pelv to check anatomy and uterine perfusion. 03/13/18 03:56 1. Patient now sleeping since IV benadryl for CT 2. Will continue with current pain management and give patient more time. Once uterus revascularizes more, pain should be decreasing significantly. 3. Will consider pain management consult later in AM if condition does not improve. 4. Decreasing IV to 50cc/hour 5. Also just drained 1800cc from Rondon catheter. Will see if that improves pain level. 6. All discussed with patient's nurse. Objective: Vital Signs Temp Pulse Resp BP Pulse Ox 36.4 C 72 16 132/86 H 100 03/13/18 02:00 03/13/18 02:00 03/13/18 02:00 03/13/18 02:00 03/13/18 02:00 Laboratory Results 03/12/18 08:30 03/12/18 08:30 03/11/18 03/12/18 03/13/18 05:59 05:59 05:59 Intake Total 3770 Output Total 855 Balance 2915 PT 12.5 SEC (12.0-15.0) 03/12/18 08:30 INR 0.91 (0.83-1.16) 03/12/18 08:30 CT shows early revascularization of uterus. No abd/pelvic hematoma or bleeding. Some soft tissue edema, likely due to IV hydration. ICD10 Worksheet Patient Problems: Problems Problem Status Onset Abdominal pain Acute Gastritis Acute Vomiting Acute
[2018-03-13] MEDS: KETOROLAC 30 MG/1 ML SDV IVP SCH ×2 (04:18→15:10)
[2018-03-13 06:27] LABS: PLATELET COUNT 159 10^3/uL (150-400)
[2018-03-13] MEDS: morphINE SR 15 MG TAB PO SCH ×2 (09:00→20:58)
[2018-03-13] MEDS: IBUPROFEN 600 MG TAB PO SCH ×3 (10:20→23:53)
--- NOTE | 2018-03-13 13:24 | SOAPPROG ---
SOAP Progress Note Assessment/Plan: Assessment: As anticipated immediately post op after UAE. Discussed expectations for tonight, both before procedure, as well as just now reiterated. Patient and expressed understanding. No additional input/requests from patient at this time. Plan: 1. Continue with pain management. Discussed how to begin weaning off of CEMENT SIDE LASTER while oral meds are tolerated. 2. Continue with rondon. 03/13/18 03:35 03/13/18 03:43 1. Apparently continued poor pain management despite of a large amount of narcotics used. 2. Will obtain CT of abd/pelv to check anatomy and uterine perfusion. 03/13/18 03:56 1. Patient now sleeping since IV benadryl for CT 2. Will continue with current pain management and give patient more time. Once uterus revascularizes more, pain should be decreasing significantly. 3. Will consider pain management consult later in AM if condition does not improve. 4. Decreasing IV to 50cc/hour 5. Also just drained 1800cc from Rondon catheter. Will see if that improves pain level. 6. All discussed with patient's nurse. 03/13/18 13:21 We discussed not setting her phone on 15min timer for her to push the CEMENT SIDE LASTER button , which is what she's been doing. Instead, listen to her pain level and push when needed. That way we can realistically understand where she is at with pain management. Patient expressed understanding and agreement to that. "I want' to get off of pumps and pain meds as well..." Laid out expectations: By this time tomorrow, patient should be off all IV connections, transitioned completely to oral meds, ambulating, and urinating with rondon out. Goals today would be to help her progress to that. Patient did not express any concerns or disapproval of that plan. 03/13/18 13:24 Change OBS status to inpatient status for pain management. Subjective: We had a great conversation this morning about school and curriculum. I walked in right when they were discussing homework with their 6th grade son. Patient appeared comfortable. Sat upright and had the entire 15min conversation without difficulty, and did not appear in distress. was engaging in the school conversation and did not have any particular concerns regarding patient's status. Tolerating PO. Says n/v is much better, and that abd is less distended. Objective: Vital Signs Temp Pulse Resp BP Pulse Ox 37.0 C 78 17 132/85 H 100 03/13/18 12:04 03/13/18 12:04 03/13/18 12:04 03/13/18 12:04 03/13/18 12:04 Laboratory Results 03/13/18 06:15 03/13/18 06:15 03/12/18 03/13/18 03/14/18 05:59 05:59 05:59 Intake Total 4720 Output Total 3905 Balance 815 PT 12.5 SEC (12.0-15.0) 03/12/18 08:30 INR 0.91 (0.83-1.16) 03/12/18 08:30 Abd soft. No hard areas palpated. No rebound tenderness. - Pending Discharge Pending Discharge Within 24 Hours: No ICD10 Worksheet Patient Problems: Problems Problem Status Onset Abdominal pain Acute Gastritis Acute Vomiting Acute
--- NOTE | 2018-03-13 14:05 | PDMN ---
Medical Necessity Medical necessity: Change to inpt as of 03/13/18 @ 8924. Pt meets intp criteria per MD order and Pain management GRG. 37 y/o w/hx symptomatic fibroids and heavy menstruation underwent UAE in IR, upgraded to inpt for pain management, requiring IV Dilaudid [employer]REDDED [employer] MACHINE and oral pain meds. Est LOS>2MN for management of above.
[2018-03-13] MEDS: oxyCODONE IR 5 MG TAB PO PRN ×2 (18:30→22:30)
[2018-03-13] MEDS: SENNOSIDES/DOCUSATE SODIUM TAB PO SCH ×2 (20:28→23:18)
[2018-03-14] MEDS: oxyCODONE IR 5 MG TAB PO PRN ×2 (02:52→08:00)
[2018-03-14 03:28] VITALS: BP 136/91
--- NOTE | 2018-03-14 03:32 | SOAPPROG ---
SOAP Progress Note Assessment/Plan: Assessment: As anticipated immediately post op after UAE. Discussed expectations for tonight, both before procedure, as well as just now reiterated. Patient and expressed understanding. No additional input/requests from patient at this time. Plan: 1. Continue with pain management. Discussed how to begin weaning off of HAND FORMER while oral meds are tolerated. 2. Continue with rondon. 03/13/18 03:35 03/13/18 03:43 1. Apparently continued poor pain management despite of a large amount of narcotics used. 2. Will obtain CT of abd/pelv to check anatomy and uterine perfusion. 03/13/18 03:56 1. Patient now sleeping since IV benadryl for CT 2. Will continue with current pain management and give patient more time. Once uterus revascularizes more, pain should be decreasing significantly. 3. Will consider pain management consult later in AM if condition does not improve. 4. Decreasing IV to 50cc/hour 5. Also just drained 1800cc from Rondon catheter. Will see if that improves pain level. 6. All discussed with patient's nurse. 03/13/18 13:21 We discussed not setting her phone on 15min timer for her to push the HAND FORMER button , which is what she's been doing. Instead, listen to her pain level and push when needed. That way we can realistically understand where she is at with pain management. Patient expressed understanding and agreement to that. "I want' to get off of pumps and pain meds as well..." Laid out expectations: By this time tomorrow, patient should be off all IV connections, transitioned completely to oral meds, ambulating, and urinating with rondon out. Goals today would be to help her progress to that. Patient did not express any concerns or disapproval of that plan. 03/13/18 13:24 Change OBS status to inpatient status for pain management. 03/14/18 03:30 D/C later this am. Rx written on chart. D/C instruction handout given to patient prior to procedure, and discussed with patient again. IR will call patient for follow up. Subjective: Off cardiovascular physician assistant. Rondon out. Has been urinating, tolerating PO, ambulating, and tolerating oral pain meds. Sleeping soundly right now. Objective: Vital Signs Temp Pulse Resp BP Pulse Ox 36.7 C 73 16 136/91 H 98 03/14/18 03:15 03/14/18 03:15 03/14/18 03:15 03/14/18 03:15 03/14/18 03:15 Laboratory Results 03/13/18 06:15 03/13/18 06:15 03/12/18 03/13/18 03/14/18 05:59 05:59 05:59 Intake Total 4720 2100 Output Total 3905 2350 Balance 815 -250 PT 12.5 SEC (12.0-15.0) 03/12/18 08:30 INR 0.91 (0.83-1.16) 03/12/18 08:30 - Pending Discharge Pending Discharge Within 24 Hours: Yes Pending Discharge Date: 03/14/18 Pending Discharge Time: 14:00 ICD10 Worksheet Patient Problems: Problems Problem Status Onset Abdominal pain Acute Gastritis Acute Vomiting Acute
[2018-03-14] MEDS: IBUPROFEN 600 MG TAB PO SCH ×2 (05:54→15:54)
[2018-03-14] MEDS: SENNOSIDES/DOCUSATE SODIUM TAB PO SCH (08:00)
[2018-03-14] MEDS: morphINE SR 15 MG TAB PO SCH (10:22)
== END 2018-03-14 11:50 | disposition home or self-care (01) | DRG 941 ==
LOC: FIMAGING 07:35 → F3E 11:36 → FOB 13:41 → OBSVTOIN 03-13 13:53
PROVIDERS: ADMIT Radiology Diagnostic Radiology; ATTEND Radiology Diagnostic Radiology
DX: G89.18 Other acute postprocedural pain (principal); D25.9 Leiomyoma of uterus, unspecified; N92.0 Excessive and frequent menstruation with regular cycle
CPT/HCPCS: C1760; C1769; C1894; G0378; J1100; J1170; J1200; J1644; J1885; J1956; J2250; J2310; J2405; J3010; Q9967